=== PATIENT | female | born 1940 | race Caucasian/White ===

== ENCOUNTER 2023-03-24 16:13 | Emergency (ER) | payer MEDICARE, OTHER, SELFPAY ==
[2023-03-24 16:24] VITALS: BP 141/79; PULSE 63; RESP 18; TEMP 37.2; O2SAT 99
--- NOTE | 2023-03-24 16:36 | ED.GENADULT ---
HPI - General Adult General Time Seen by Provider: 16:36 Date Seen: 03/24/23 Chief complaint: Fever Stated complaint: Fever Time Seen by Provider: 03/24/23 16:18 Source: patient and RN notes reviewed Mode of arrival: ambulatory Limitations: no limitations History of Present Illness HPI narrative: This 82-year-old female is here with a relative whom she lives with coming in with concern of COVID. There has been a COVID exposure, that person tested positive on Wednesday. No one else around her has been ill with anything else. This patient recently moved to the area to live with her care provider, they have not established care. She has had body aches, chills overnight. Symptoms started last night. She had to put more clothes on she was so cold last night. She has just had low-grade fevers and some nasal congestion. There has been just maybe a little dry cough. No urinary symptoms, no abdominal symptoms. Denies any sore throat, no loss of taste or smell, no otalgia. She takes Tylenol p.m. to sleep but otherwise is not taken anything. Related Data Home Medications Medication Instructions Recorded Confirmed donepezil 5 mg tablet 5 mg PO DAILY 03/24/23 03/24/23 lisinopril 20 mg tablet 20 mg PO DAILY 03/24/23 03/24/23 Previous Rx's Medication Instructions Recorded nirmatrelvir 150 mg-ritonavir 100 See Rx Instructions PO .COMPLEX 03/24/23 mg tablets in a dose pack #20 ea (Paxlovid) Allergies Allergy/AdvReac Type Severity Reaction Status Date / Time Penicillins Allergy Verified 03/24/23 16:24 [facility] Social History Smoking Status: Never smoker Do you use any of these nicotine containing products: None Second hand tobacco smoke exposure: No How often do you have a drink containing alcohol: never How often do you have six or more drinks on one occasion: Never AUDIT-C Alcohol total score: 0 Non-prescribed substance use: denies use service: No Exam Const: Vital Signs, click to edit/add: Vital Signs - 24 hr 03/24/23 16:24 Temperature 99.0 F Pulse Rate [Right Pulse Oximeter] 63 Respiratory Rate 18 Blood Pressure [Ri ght Upper Arm] 141/79 H Pulse Oximetry 99 Oxygen Delivery Me thod Room Air This 82-year-old female seen in exam room 1, sitting up on the edge of the bed. She is sniffling some but otherwise is alert, interactive, no apparent distress. Sclera clear, pupils equal round reactive. She has hearing aids, they removed, some wax in canals obscuring visualization of TMs. Anterior nares look normal. Oropharynx with normal mucosa, no exudates or erythema. Speech is normal. Neck is supple, no cervical adenopathy or masses. Lungs are clear with good air entry, no wheezing or crackles. CV regular rate and rhythm no murmur. Documenting provider has reviewed patient's vital signs: yes Course Course ED Course: They would be interested in Paxlovid if she tests positive for COVID. We did go over need for renal dosing. We will be doing some basic labs with CBC, CRP and basic metabolic panel. Went over risks benefits and side effects. Nursing staff has collected the nasal swab, awaiting results. Reevaluation(s) Time of Reevaluation #1: 17:32 Reevaluation #1: Did review that she is COVID positive. We are waiting her kidney functions at this time. Vital Signs Vital signs: Initial Vital Signs Temperature 99.0 F 03/24/23 16:24 Temperature Source Temporal Artery Scan 03/24/23 16:24 Pulse Rate 63 03/24/23 16:24 Respiratory Rate 18 03/24/23 16:24 Blood Pressure 141/79 H 03/24/23 16:24 Blood Pressure Mean 99 03/24/23 16:24 Blood Pressure Position Sitting 03/24/23 16:24 Pulse Oximetry 99 03/24/23 16:24 Oxygen Delivery Method Room Air 03/24/23 16:24 Vital Signs Temperature 99.0 F 03/24/23 16:24 Pulse Rate 63 03/24/23 16:24 Respiratory Rate 18 03/24/23 16:24 Blood Pressure 141/79 H 03/24/23 16:24 Pulse Oximetry 99 03/24/23 16:24 Oxygen Delivery Method Room Air 03/24/23 16:24 Temperature 99.0 F 03/24/23 16:24 Pulse Rate 63 03/24/23 16:24 Respiratory Rate 18 03/24/23 16:24 Blood Pressure 141/79 H 03/24/23 16:24 Pulse Oximetry 99 03/24/23 16:24 Oxygen Delivery Method Room Air 03/24/23 16:24 Medical Decision Making Lab Data Lab results reviewed: Yes I reviewed the patient's lab results Labs: Lab Results 03/24/23 03/24/23 Range/Units 16:27 16:59 WBC 5.36 (4.50-11.00) K/uL RBC 3.58 L (4.00-5.20) m/uL Hgb 11.0 L (12.0-16.0) gm/dL Hct 35.4 (33.0-51.0) % MCV 99 (80-100) fL MCH 31 (26-34) pg MCHC 31 L (32-36) gm/dL RDW Coeff of Prasanth 12.2 (11.5-15.5) % Plt Count 217 (140-440) K/uL Neut % (Auto) 79.2 H (42.0-72.0) % Lymph % (Auto) 12.1 L (20-44) % [place] % (Auto) 7.6 (0.0-11.0) % Eos % (Auto) 0.0 (0.0-7.0) % Baso % (Auto) 0.4 (0.0-3.0) % Neut # (Auto) 4.20 (1.7-7.0) K/uL Lymph # (Auto) 0.60 L (0.90-2.90) K/uL [place] # (Auto) 0.40 (0.00-0.90) K/UL Eos # (Auto) 0.00 (0.00-0.50) K/uL Baso # (Auto) 0.02 (0.00-0.30) K/uL Abs Immat Gran (auto) 0.04 (0.00-0.30) K/uL Imm/Tot Granulo (auto) 0.7 % Sodium 137 (135-149) mmol/L Potassium 4.2 (3.6-5.1) mmol/L Chloride 103 (96-114) mmol/L Carbon Dioxide 23 (20-32) mmol/L Anion Gap 11 (7-15) mEq/L BUN 17 (7-30) mg/dL Creatinine 1.0 (0.5-1.5) mg/dL Estimated GFR 56 ml/min Glucose 103 (60-115) mg/dL Calcium 9.5 (8.4-10.6) mg/dL C-Reactive Protein 2.3 H (0.5-1.0) mg/dL SARS-CoV-2 (PCR) POSITIVE SARS-CoV-2 A (Negative) Influenza Type A (PCR) Negative PCR FLU A (Negative) Influenza Type B (PCR) Negative PCR FLU B (Negative) RSV (PCR) Negative PCR RSV (Negative) Discharge Plan Discharge Clinical Impression: COVID-19 Patient Disposition: Home w/ Parent or Adult Condition: Stable Instructions: COVID-19 (Coronavirus Disease 2019) (ED), COVID-19: Slow the Coronavirus Spread (ED) Additional Instructions: Start to take the Paxlovid and take as prescribed. Can use Tylenol per bottle directions if needed for any fever or discomfort. You can stay on your usual medications. Need to be rechecked if you are worsening, having difficulty breathing, have chest pain, are unable to take an oral fluids. You should quarantine per current CDC guidelines for COVID. When you are improved from this illness, do recommend follow up in clinic to get established. Hemoglobin was just mildly low at 11 which may be very well normal at age 82. This should be rechecked or compared to from previous lab results. Activity Level: Activity as Tolerated Prescriptions: New Paxlovid 150-100 mg tablets,dose pack See Rx Instructions .ROUTE .COMPLEX Qty: 20 0RF Rx Instructions: orally per package directions No Action lisinopril 20 mg tablet 20 mg PO DAILY donepezil 5 mg tablet 5 mg PO DAILY Follow Up/Referrals: Marianne Pacheco MD [Primary Care Provider] - Stand Alone Forms: [employer] Info Instructions
[2023-03-24 17:05] LABS: Basophils Absolute Auto 0.02 K/uL (0.00-0.30); Basophils Percent Auto 0.4 % (0.0-3.0); Hematocrit 35.4 % (33.0-51.0); Immature Granulocytes Abs Auto 0.04 K/uL (0.00-0.30); Immature Granulocytes Pct Auto 0.7 %; Lymphocytes Percent Auto 12.1 % (20-44); Mean Corpuscular HGB Conc 31 gm/dL (32-36); Mean Corpuscular Hemoglobin 31 pg (26-34); Mean Corpuscular Volume 99 fL (80-100); Monocytes Percent Auto 7.6 % (0.0-11.0); Neutrophils Percent Auto 79.2 % (42.0-72.0); Platelet Count* 217 K/uL (140-440); RDW Coefficient of Variation % 12.2 % (11.5-15.5); Red Blood Count 3.58 m/uL (4.00-5.20); White Blood Count* 5.36 K/uL (4.50-11.00)
[2023-03-24 17:07] LABS: Slide Review Reflex No
[2023-03-24 17:10] LABS: PCR FLU A Negative PCR FLU A (Negative); PCR FLU B Negative PCR FLU B (Negative); PCR RSV Negative PCR RSV (Negative)
[2023-03-24 17:19] LABS: SARS PCR* POSITIVE SARS-CoV-2 (Negative)
[2023-03-24 17:20] LABS: Chloride* 103 mmol/L (96-114); Sodium* 137 mmol/L (135-149)
[2023-03-24 17:21] LABS: Potassium* 4.2 mmol/L (3.6-5.1)
[2023-03-24 17:23] LABS: Estimated Glomerular Filt Rate 56 ml/min
[2023-03-24 17:24] LABS: Anion Gap 11 mEq/L (7-15); Blood Urea Nitrogen* 17 mg/dL (7-30); Calcium* 9.5 mg/dL (8.4-10.6); Carbon Dioxide* 23 mmol/L (20-32); Glucose* 103 mg/dL (60-115)
[2023-03-24 17:27] LABS: C Reactive Protein* 2.3 mg/dL (0.5-1.0)
== END 2023-03-24 17:48 | disposition home or self-care (01) ==
PROVIDERS: Emergency Provider Family Medicine; PCP Family Medicine
DX: U07.1 COVID-19 (principal)
CPT/HCPCS: 36415; 80048; 85025; 86140; 87631; 99283

== ENCOUNTER 2023-06-24 13:10 | Emergency (ER) | payer MEDICARE, OTHER, SELFPAY ==
[2023-06-24] VITALS (46 sets, daily range): BP systolic 134–185; BP diastolic 66–90; PULSE 42–62; RESP 22; TEMP 36.2; O2SAT 79–100; BMI 26.3
--- NOTE | 2023-06-24 14:37 | CRLHL7_ITS ---
For Patients: As a result of the Century Cures Act, medical imaging exams and procedure reports are released immediately into your electronic medical record. You may view this report before your referring provider. If you have questions, please contact your health care provider. Indication: Chest tightness Technique: Chest 1 view Comparison: None Findings/Impression: Cardiovascular and mediastinum: Mild cardiomegaly with aortic tortuosity. Lungs and pleural space: No pleural effusion or pneumothorax. No focal pulmonary consolidation. Bone island versus granuloma at the right upper lobe. Bones and soft tissues: Diffuse osteopenia. Right upper quadrant surgical clips. Dictated by Lisandro Rubin MD @ 06/24/2023 3:26:45 PM (Electronically Signed)
[2023-06-24 15:10] LABS: Basophils Percent Auto 0.7 % (0.0-3.0); Hematocrit 37.9 % (33.0-51.0); Hemoglobin* 11.6 gm/dL (12.0-16.0); Lymphocytes Percent Auto 34.6 % (20-44); Mean Corpuscular HGB Conc 31 gm/dL (32-36); Mean Corpuscular Hemoglobin 30 pg (26-34); Mean Corpuscular Volume 100 fL (80-100); Monocytes Percent Auto 7.4 % (0.0-11.0); Neutrophils Percent Auto 56.3 % (42.0-72.0); Platelet Count* 174 K/uL (140-440); RDW Coefficient of Variation % 12.3 % (11.5-15.5); Red Blood Count 3.81 m/uL (4.00-5.20); White Blood Count* 4.05 K/uL (4.50-11.00)
[2023-06-24 15:13] LABS: Slide Review Reflex No
[2023-06-24 15:24] LABS: Chloride* 109 mmol/L (96-114); Potassium* 4.5 mmol/L (3.6-5.1); Sodium* 143 mmol/L (135-149)
[2023-06-24 15:25] LABS: PCR FLU A Negative PCR FLU A (Negative); PCR FLU B Negative PCR FLU B (Negative); PCR RSV Negative PCR RSV (Negative)
[2023-06-24 15:27] LABS: Blood Urea Nitrogen* 21 mg/dL (7-30); Carbon Dioxide* 26 mmol/L (20-32); Est. Creatinine Clearance* 39.68; Estimated Glomerular Filt Rate 56 ml/min; Glucose* 97 mg/dL (60-115)
[2023-06-24 15:28] LABS: Calcium* 10.2 mg/dL (8.4-10.6)
--- NOTE | 2023-06-24 15:42 | ED_ITS ---
HPI - General Adult General Date Seen: 06/24/23 <Zahra Farmer MD - Last Filed: 06/28/23 10:13> Chief complaint: Chest Pain <Zahra Farmer MD - Last Filed: 06/28/23 10:13> Stated complaint: Tightness in chest <Zahra Farmer MD - Last Filed: 06/28/23 10:13> Time Seen by Provider: 06/24/23 13:58 <Zahra Farmer MD - Last Filed: 06/28/23 10:13> Source: patient and family <Zahra Farmer MD - Last Filed: 06/28/23 10:13> Mode of arrival: ambulatory <Zahra Framer MD - Last Filed: 06/28/23 10:13> Limitations: no limitations <Zahra Farmer MD - Last Filed: 06/28/23 10:13> History of Present Illness HPI narrative: Patient is an 82-year-old woman here with her daughter for evaluation near syncope associated with chest tightness. She moved here few months ago from [place], she had been living with a different daughter. She has dementia and is not a very reliable historian, but her daughter says that for maybe the past year or even more she has had occasional episodes where she feels like she is going to faint. Her daughter says she gets very anxious during these episodes, but today was the 1st time she had complained of chest tightness. This started about 12 30, they arrived here around 120 undo to high volumes were not seen for an hour to, patient denies any memory of any of this, and daughter really isn't sure when it all resolved. Right now patient says she feels fine. Her general health is good aside from dementia and high blood pressure, she takes Aricept and lisinopril. She does not smoke or drink. She has never had any fainting spells. She has not been evaluated as far as this daughter knows. <Zahra Farmer MD - Last Filed: 06/28/23 10:13> Related Data Home medications: Home Medications Medication Instructions Recorded Confirmed donepezil 5 mg tablet 5 mg PO DAILY 03/24/23 03/24/23 lisinopril 20 mg tablet 20 mg PO DAILY 03/24/23 03/24/23 <Zahra Farmer MD - Last Filed: 06/28/23 10:13> Allergies/adverse reactions: Allergies Allergy/AdvReac Type Severity Reaction Status Date / Time Penicillins Allergy Verified 06/24/23 13:32 <Zahra Farmer MD - Last Filed: 06/28/23 10:13> Review of Systems Status of ROS: Reports: unobtainable due to medical condition <Zahra Farmer MD - Last Filed: 06/28/23 10:13> [facility] Social History: Social History Smoking Status: Never smoker Do you use any of these nicotine containing products: None Second hand tobacco smoke exposure: No How often do you have a drink containing alcohol: never How often do you have six or more drinks on one occasion: Never AUDIT-C Alcohol total score: 0 Non-prescribed substance use: denies use service: No <Zahra Farmer MD - Last Filed: 06/28/23 10:13> Exam Narrative: Exam Narrative: Vital signs as noted above. In general, an alert, well-appearing elderly woman. Breathing easily. Head: Normocephalic, atraumatic. Eyes: Pupils are equal reactive. Extraocular movements are full. Conjunctivae are normal. ENT: Mucous membranes are moist. Throat is normal. Neck: Supple without lymphadenopathy. Heart: Regular rate and rhythm. No murmur or rub. Lungs: Clear bilaterally. No increased work of breathing, crackles or wheezes. Abdomen: Soft and nontender. No organomegaly. Extremities: Well perfused. No edema. No calf tenderness. Pulses intact. Neurologic: Patient is oriented to person. Speech is fluent, moves all extremities, face symmetric. Memory poor. Affect: Normal. Skin: Warm and dry. Well perfused. <Zahra Farmer MD - Last Filed: 06/28/23 10:13> Const: Vital Signs, click to edit/add: Vital Signs - 24 hr 06/24/23 13:21 06/24/23 13:22 06/24/23 13:28 Temperature 97.2 F L Pulse Rate 58 L 55 L Pulse Rate [Right Pulse Oximeter] 52 L Respiratory Rate 22 Blood Pressure 167/90 H Blood Pressure [Ri ght Upper Arm] 174/81 H Pulse Oximetry 100 100 [facility] 06/24/23 13:30 06/24/23 13:31 06/24/23 13:40 Temperature Pulse Rate 52 L 51 L Pulse Rate [Right Pulse Oximeter] Respiratory Rate Blood Pressure 174/81 H Blood Pressure [Ri ght Upper Arm] Pulse Oximetry 100 100 [facility] 06/24/23 13:45 06/24/23 13:50 06/24/23 14:00 Temperature Pulse Rate 57 L 56 L Pulse Rate [Right Pulse Oximeter] Respiratory Rate Blood Pressure Blood Pressure [Ri ght Upper Arm] Pulse Oximetry 100 100 [facility] 06/24/23 14:02 06/24/23 14:10 06/24/23 14:15 Temperature Pulse Rate 55 L 44 L Pulse Rate [Right Pulse Oximeter] Respiratory Rate Blood Pressure 185/75 H Blood Pressure [Ri ght Upper Arm] Pulse Oximetry 100 100 [facility] 06/24/23 14:20 06/24/23 14:30 06/24/23 14:31 Temperature Pulse Rate 47 L 43 L Pulse Rate [Right Pulse Oximeter] Respiratory Rate Blood Pressure 168/72 H Blood Pressure [Ri ght Upper Arm] Pulse Oximetry 100 100 [facility] 06[facility]24/23 14:32 06/24/23 14:44 06/24/23 14:45 Temperature Pulse Rate 42 L 59 L Pulse Rate [Right Pulse Oximeter] Respiratory Rate Blood Pressure Blood Pressure [Ri ght Upper Arm] Pulse Oximetry 100 98 96 [facility] 06/24/23 14:50 06/24/23 15:00 06/24/23 15:02 Temperature Pulse Rate 53 L 44 L Pulse Rate [Right Pulse Oximeter] Respiratory Rate Blood Pressure 162/78 H Blood Pressure [Ri ght Upper Arm] Pulse Oximetry 99 100 [facility] 06/24/23 15:10 06/24/23 15:15 06/24/23 15:20 Temperature Pulse Rate 44 L Pulse Rate [Right Pulse Oximeter] Respiratory Rate Blood Pressure Blood Pressure [Ri ght Upper Arm] Pulse Oximetry 100 100 [facility] 06/24/23 15:30 06/24/23 15:32 06/24/23 15:45 Temperature Pulse Rate 52 L 50 L 50 L Pulse Rate [Right Pulse Oximeter] Respiratory Rate Blood Pressure 162/71 H Blood Pressure [Ri ght Upper Arm] Pulse Oximetry 100 100 100 Oxygen Delivery [facility] 06/24/23 15:50 06/24/23 16:00 06/24/23 16:01 Temperature Pulse Rate 46 L 54 L Pulse Rate [Right Pulse Oximeter] Respiratory Rate Blood Pressure 145/80 H Blood Pressure [Ri ght Upper Arm] Pulse Oximetry 99 100 99 [facility] 06/24/23 16:10 06/24/23 16:15 06/24/23 16:20 Temperature Pulse Rate 43 L Pulse Rate [Right Pulse Oximeter] Respiratory Rate Blood Pressure Blood Pressure [Ri ght Upper Arm] Pulse Oximetry 100 100 [facility] 06/24/23 16:30 06/24/23 16:32 06/24/23 16:47 Temperature Pulse Rate Pulse Rate [Right Pulse Oximeter] Respiratory Rate Blood Pressure Blood Pressure [Ri ght Upper Arm] Pulse Oximetry 100 100 96 [facility] 06/24/23 16:50 06/24/23 17:00 06/24/23 17:02 Temperature Pulse Rate Pulse Rate [Right Pulse Oximeter] Respiratory Rate Blood Pressure Blood Pressure [Ri ght Upper Arm] Pulse Oximetry 100 99 100 Oxygen Delivery [facility] 06/24/23 19:30 06/24/23 19:32 06/24/23 19:45 Temperature Pulse Rate 52 L 45 L 42 L Pulse Rate [Right Pulse Oximeter] Respiratory Rate Blood Pressure 163/77 H Blood Pressure [Ri ght Upper Arm] Pulse Oximetry 99 98 100 Oxygen Delivery [facility] 06/24/23 19:47 06/24/23 20:00 06/24/23 20:02 Temperature Pulse Rate 51 L 60 54 L Pulse Rate [Right Pulse Oximeter] Respiratory Rate Blood Pressure 157/66 H 134/83 Blood Pressure [Ri ght Upper Arm] Pulse Oximetry 100 79 L [facility] 06/24/23 20:15 06/25/23 00:41 Temperature Pulse Rate 62 42 L Pulse Rate [Right Pulse Oximeter] Respiratory Rate 16 Blood Pressure 120/73 Blood Pressure [Ri ght Upper Arm] Pulse Oximetry 100 [facility] <Zahra Farmer MD - Last Filed: 06/28/23 10:13> Vital Signs, click to edit/add: Vital Signs - 24 hr 06/24/23 13:21 06/24/23 13:22 06/24/23 13:28 Temperature 97.2 F L Pulse Rate 58 L 55 L Pulse Rate [Right Pulse Oximeter] 52 L Respiratory Rate 22 Blood Pressure 167/90 H Blood Pressure [Ri ght Upper Arm] 174/81 H Pulse Oximetry 100 100 100 Oxygen Delivery Me od Room Air 06/24/23 13:30 06/24/23 13:31 06/24/23 13:40 Temperature Pulse Rate 52 L 51 L Pulse Rate [Right Pulse Oximeter] Respiratory Rate Blood Pressure 174/81 H Blood Pressure [Ri ght Upper Arm] Pulse Oximetry 100 100 100 Oxygen Delivery Me od 06/24/23 13:45 06/24/23 13:50 06/24/23 14:00 Temperature Pulse Rate 57 L 56 L Pulse Rate [Right Pulse Oximeter] Respiratory Rate Blood Pressure Blood Pressure [Ri ght Upper Arm] Pulse Oximetry 100 100 [facility] 06/24/23 14:02 06/24/23 14:10 06/24/23 14:15 Temperature Pulse Rate 55 L 44 L Pulse Rate [Right Pulse Oximeter] Respiratory Rate Blood Pressure 185/75 H Blood Pressure [Ri ght Upper Arm] Pulse Oximetry 100 100 100 Oxygen Delivery [facility] 06/24/23 14:20 06/24/23 14:30 06/24/23 14:31 Temperature Pulse Rate 47 L 43 L Pulse Rate [Right Pulse Oximeter] Respiratory Rate Blood Pressure 168/72 H Blood Pressure [Ri ght Upper Arm] Pulse Oximetry 100 100 100 Oxygen Delivery [facility] 06/24/23 14:32 06/24/23 14:44 06/24/23 14:45 Temperature Pulse Rate 42 L 59 L Pulse Rate [Right Pulse Oximeter] Respiratory Rate Blood Pressure Blood Pressure [Ri ght Upper Arm] Pulse Oximetry 100 98 96 Oxygen Delivery [facility] 06/24/23 14:50 06/24/23 15:00 06/24/23 15:02 Temperature Pulse Rate 53 L 44 L Pulse Rate [Right Pulse Oximeter] Respiratory Rate Blood Pressure 162/78 H Blood Pressure [Ri ght Upper Arm] Pulse Oximetry 99 100 [facility] 06/24/23 15:10 06/24/23 15:15 06/24/23 15:20 Temperature Pulse Rate 44 L Pulse Rate [Right Pulse Oximeter] Respiratory Rate Blood Pressure Blood Pressure [Ri ght Upper Arm] Pulse Oximetry 100 100 100 Oxygen Delivery [facility] 06/24/23 15:30 06/24/23 15:32 06/24/23 15:45 Temperature Pulse Rate 52 L 50 L 50 L Pulse Rate [Right Pulse Oximeter] Respiratory Rate Blood Pressure 162/71 H Blood Pressure [Ri ght Upper Arm] Pulse Oximetry 100 100 100 Oxygen Delivery [facility] 06/24/23 15:50 06/24/23 16:00 06/24/23 16:01 Temperature Pulse Rate 46 L 54 L Pulse Rate [Right Pulse Oximeter] Respiratory Rate Blood Pressure 145/80 H Blood Pressure [Ri ght Upper Arm] Pulse Oximetry 99 100 99 [facility] 06/24/23 16:10 06/24/23 16:15 06/24/23 16:20 Temperature Pulse Rate 43 L Pulse Rate [Right Pulse Oximeter] Respiratory Rate Blood Pressure Blood Pressure [Ri ght Upper Arm] Pulse Oximetry 100 100 [facility] 06/24/23 16:30 06/24/23 16:32 06/24/23 16:47 Temperature Pulse Rate Pulse Rate [Right Pulse Oximeter] Respiratory Rate Blood Pressure Blood Pressure [Ri ght Upper Arm] Pulse Oximetry 100 100 96 [facility] 06/24/23 16:50 06/24/23 17:00 06/24/23 17:02 Temperature Pulse Rate Pulse Rate [Right Pulse Oximeter] Respiratory Rate Blood Pressure Blood Pressure [Ri ght Upper Arm] Pulse Oximetry 100 99 [facility] 06/24/23 19:30 06/24/23 19:32 06/24/23 19:45 Temperature Pulse Rate 52 L 45 L 42 L Pulse Rate [Right Pulse Oximeter] Respiratory Rate Blood Pressure 163/77 H Blood Pressure [Ri ght Upper Arm] Pulse Oximetry 99 98 [facility] 06/24/23 19:47 06/24/23 20:00 06/24/23 20:02 Temperature Pulse Rate 51 L 60 54 L Pulse Rate [Right Pulse Oximeter] Respiratory Rate Blood Pressure 157/66 H 134/83 Blood Pressure [Ri ght Upper Arm] Pulse Oximetry 100 79 L 100 Oxygen Delivery [facility] 06/24/23 20:15 06/25/23 00:41 Temperature Pulse Rate 62 42 L Pulse Rate [Right Pulse Oximeter] Respiratory Rate 16 Blood Pressure 120/73 Blood Pressure [Ri ght Upper Arm] Pulse Oximetry 100 Oxygen Delivery [facility] <Ryan Cadena, DO - Last Filed: 06/25/23 00:27> Vital Signs, click to edit/add: Vital Signs - 24 hr 06/24/23 13:21 06/24/23 13:22 06/24/23 13:28 Temperature 97.2 F L Pulse Rate 58 L 55 L Pulse Rate [Right Pulse Oximeter] 52 L Respiratory Rate 22 Blood Pressure 167/90 H Blood Pressure [Ri ght Upper Arm] 174/81 H Pulse Oximetry 100 100 100 Oxygen Delivery [facility] Room Air 06/24/23 13:30 06/24/23 13:31 06/24/23 13:40 Temperature Pulse Rate 52 L 51 L Pulse Rate [Right Pulse Oximeter] Respiratory Rate Blood Pressure 174/81 H Blood Pressure [Ri ght Upper Arm] Pulse Oximetry 100 100 100 Oxygen Delivery [facility] 06/24/23 13:45 06/24/23 13:50 06/24/23 14:00 Temperature Pulse Rate 57 L 56 L Pulse Rate [Right Pulse Oximeter] Respiratory Rate Blood Pressure Blood Pressure [Ri ght Upper Arm] Pulse Oximetry 100 100 100 Oxygen Delivery [facility] 06/24/23 14:02 06/24/23 14:10 06/24/23 14:15 Temperature Pulse Rate 55 L 44 L Pulse Rate [Right Pulse Oximeter] Respiratory Rate Blood Pressure 185/75 H Blood Pressure [Ri ght Upper Arm] Pulse Oximetry 100 100 100 Oxygen Delivery [facility] 06/24/23 14:20 06/24/23 14:30 06/24/23 14:31 Temperature Pulse Rate 47 L 43 L Pulse Rate [Right Pulse Oximeter] Respiratory Rate Blood Pressure 168/72 H Blood Pressure [Ri ght Upper Arm] Pulse Oximetry 100 100 100 Oxygen Delivery [facility] 06/24/23 14:32 06/24/23 14:44 06/24/23 14:45 Temperature Pulse Rate 42 L 59 L Pulse Rate [Right Pulse Oximeter] Respiratory Rate Blood Pressure Blood Pressure [Ri ght Upper Arm] Pulse Oximetry 100 98 96 [facility] 06/[facility]/23 14:50 06/24/23 15:00 06/24/23 15:02 Temperature Pulse Rate 53 L 44 L Pulse Rate [Right Pulse Oximeter] Respiratory Rate Blood Pressure 162/78 H Blood Pressure [Ri ght Upper Arm] Pulse Oximetry 99 100 [facility] 06/24/23 15:10 06/24/23 15:15 06/24/23 15:20 Temperature Pulse Rate 44 L Pulse Rate [Right Pulse Oximeter] Respiratory Rate Blood Pressure Blood Pressure [Ri ght Upper Arm] Pulse Oximetry 100 100 [facility] 06/24/23 15:30 06/24/23 15:32 06/24/23 15:45 Temperature Pulse Rate 52 L 50 L 50 L Pulse Rate [Right Pulse Oximeter] Respiratory Rate Blood Pressure 162/71 H Blood Pressure [Ri ght Upper Arm] Pulse Oximetry 100 100 [facility] 06/24/23 15:50 06/24/23 16:00 06/24/23 16:01 Temperature Pulse Rate 46 L 54 L Pulse Rate [Right Pulse Oximeter] Respiratory Rate Blood Pressure 145/80 H Blood Pressure [Ri ght Upper Arm] Pulse Oximetry 99 100 99 [facility] 06/24/23 16:10 06/24/23 16:15 06/24/23 16:20 Temperature Pulse Rate 43 L Pulse Rate [Right Pulse Oximeter] Respiratory Rate Blood Pressure Blood Pressure [Ri ght Upper Arm] Pulse Oximetry 100 100 [facility] 06/24/23 16:30 06/24/23 16:32 06/24/23 16:47 Temperature Pulse Rate Pulse Rate [Right Pulse Oximeter] Respiratory Rate Blood Pressure Blood Pressure [Ri ght Upper Arm] Pulse Oximetry 100 100 96 [facility] 06/24/23 16:50 06/24/23 17:00 06/24/23 17:02 Temperature Pulse Rate Pulse Rate [Right Pulse Oximeter] Respiratory Rate Blood Pressure Blood Pressure [Ri ght Upper Arm] Pulse Oximetry 100 99 [facility] 06/24/23 19:30 06/24/23 19:32 06/24/23 19:45 Temperature Pulse Rate 52 L 45 L 42 L Pulse Rate [Right Pulse Oximeter] Respiratory Rate Blood Pressure 163/77 H Blood Pressure [Ri ght Upper Arm] Pulse Oximetry 99 98 100 Oxygen Delivery [facility] 06/24/23 19:47 06/24/23 20:00 06/24/23 20:02 Temperature Pulse Rate 51 L 60 54 L Pulse Rate [Right Pulse Oximeter] Respiratory Rate Blood Pressure 157/66 H 134/83 Blood Pressure [Ri ght Upper Arm] Pulse Oximetry 100 79 L 100 Oxygen Delivery [facility] 06/24/23 20:15 06/25/23 00:41 Temperature Pulse Rate 62 42 L Pulse Rate [Right Pulse Oximeter] Respiratory Rate 16 Blood Pressure 120/73 Blood Pressure [Ri ght Upper Arm] Pulse Oximetry 100 Oxygen Delivery [facility] <Deborah Edge MD - Last Filed: 06/25/23 01:22> Documenting provider has reviewed patient's vital signs: yes <Zahra Farmer MD - Last Filed: 06/28/23 10:13> Course Course ED Course: On arrival, patient had an EKG which by my review showed sinus bradycardia, ventricular rate of 54. Left bundle-branch block. No previous EKGs available for comparison. Patient's heart rate while here remained primarily in the 40s, she has an occasional pause with what looks like a ventricular escape beat, but blood pressures have been normal, and overall heart rate has not gone below 40. Labs thus far show a white count of 4, hemoglobin of 11.6, normal electrolytes, BUN and creatinine, negative CRP P. Troponin and COVID/influenza/RSV are pending at this time. I reviewed the workup so far with the patient and her daughter. I do think a repeat troponin in another hour would be reasonable given onset of her chest tightness at 12:30 p.m. and initial troponin drawn at 3:00 p.m.. She is on donepezil, and I wonder about bradycardia as a possible side effect of this medication. It is possible she is having more profound bradycardia leading to near syncopal episodes. We have not documented anything here, but discussed with her daughter that I think it would be reasonable to do either Holter or ZIO patch monitoring for her to see if she is having more specific episodes of bradycardia. In addition, I would suggest they discussed the Aricept with her primary doctor, as it may be that this medication is causing significant enough bradycardia at this point that it should be discontinued. With regard to the chest tightness, assuming both troponins are negative, I think it is reasonable to let her go home. Discussed with her daughter that further workup would depend on their goals of care in terms of how they would manage the results of a stress test, angiogram etcetera. This can be discussed further with primary care as well. <Zahra Farmer MD - Last Filed: 06/28/23 10:13> Reevaluation(s) Time of Reevaluation #1: 01:21 <Deborah Edge MD - Last Filed: 06/25/23 01:22> Reevaluation #1: Dr. dEge- nursing team informed me that she started to have episodes of bradycardia with some pauses and then what looked to be brief runs of rapid RVR in between. This was about 5 minutes prior to transfer. They report that she had been off of the cardiac monitors for probably a couple of hours and they were not aware. We moved her and a stable 1 applied pacer pads, as I observed her rhythm on the monitors, she was staying in a sinus arrhythmia but with a stable rate. She remained asymptomatic during this time. No additional interventions were given. I did recommend that she be transferred emergently because of this. Transition to EMS otherwise uncomplicated. <Deborah Edge MD - Last Filed: 06/25/23 01:22> Vital Signs Vital signs: Initial Vital Signs Pulse Rate 58 L 06/24/23 13:21 Blood Pressure 167/90 H 06/24/23 13:21 Blood Pressure Mean 115 H 06/24/23 13:21 Pulse Oximetry 100 06/24/23 13:21 Vital Signs Pulse Rate 58 L 06/24/23 13:21 Blood Pressure 167/90 H 06/24/23 13:21 Pulse Oximetry 100 06/24/23 13:21 Temperature 97.2 F L 06/24/23 13:28 Pulse Rate 45 L 06/25/23 01:10 Respiratory Rate 16 06/25/23 01:10 Blood Pressure 127/69 06/25/23 01:10 Pulse Oximetry 99 06/25/23 01:10 Oxygen Delivery Method Room Air 06/25/23 01:10 <Zahra Farmer MD - Last Filed: 06/28/23 10:13> Initial Vital Signs Pulse Rate 58 L 06/24/23 13:21 Blood Pressure 167/90 H 06/24/23 13:21 Blood Pressure Mean 115 H 06/24/23 13:21 Pulse Oximetry 100 06/24/23 13:21 Vital Signs Pulse Rate 58 L 06/24/23 13:21 Blood Pressure 167/90 H 06/24/23 13:21 Pulse Oximetry 100 06/24/23 13:21 Temperature 97.2 F L 06/24/23 13:28 Pulse Rate 45 L 06/25/23 01:10 Respiratory Rate 16 06/25/23 01:10 Blood Pressure 127/69 06/25/23 01:10 Pulse Oximetry 99 06/25/23 01:10 Oxygen Delivery Method Room Air 06/25/23 01:10 <Ryan Cadena DO - Last Filed: 06/25/23 00:27> Initial Vital Signs Pulse Rate 58 L 06/24/23 13:21 Blood Pressure 167/90 H 06/24/23 13:21 Blood Pressure Mean 115 H 06/24/23 13:21 Pulse Oximetry 100 06/24/23 13:21 Vital Signs Pulse Rate 58 L 06/24/23 13:21 Blood Pressure 167/90 H 06/24/23 13:21 Pulse Oximetry 100 06/24/23 13:21 Temperature 97.2 F L 06/24/23 13:28 Pulse Rate 45 L 06/25/23 01:10 Respiratory Rate 16 06/25/23 01:10 Blood Pressure 127/69 06/25/23 01:10 Pulse Oximetry 99 06/25/23 01:10 Oxygen Delivery Method Room Air 06/25/23 01:10 <Deborah Edge MD - Last Filed: 06/25/23 01:22> Medications Administered Medications: Discontinued Medications Generic Name Dose Route Start Last Admin Trade Name Freq PRN Reason Stop Dose Admin Heparin Sodium (Porcine) 3,500 unit 06/24/23 21:33 06/24/23 21:50 Heparin 5,000 Unit/0.5 Ml Inj 60 unit/kg (3500 unit) 06/24/23 21:34 3,500 unit IVP Administration ONCE ONE Heparin Sodium/Dextrose 25,000 unit in 500 mls @ 0 mls/hr 06/24/23 21:45 06/24/23 21:50 Heparin IV 600 unit/hr .Q0M TYLER 12 mls/hr Administration Protocol Per Protocol <Zahra Farmer MD - Last Filed: 06/28/23 10:13> Discontinued Medications Generic Name Dose Route Start Last Admin Trade Name Freq PRN Reason Stop Dose Admin Heparin Sodium (Porcine) 3,500 unit 06/24/23 21:33 06/24/23 21:50 Heparin 5,000 Unit/0.5 Ml Inj 60 unit/kg (3500 unit) 06/24/23 21:34 3,500 unit IVP Administration ONCE ONE Heparin Sodium/Dextrose 25,000 unit in 500 mls @ 0 mls/hr 06/24/23 21:45 06/24/23 21:50 Heparin IV 600 unit/hr .Q0M TYLER 12 mls/hr Administration Protocol Per Protocol <Ryan Cadena DO - Last Filed: 06/25/23 00:27> Discontinued Medications Generic Name Dose Route Start Last Admin Trade Name Freq PRN Reason Stop Dose Admin Heparin Sodium (Porcine) 3,500 unit 06/24/23 21:33 06/24/23 21:50 Heparin 5,000 Unit/0.5 Ml Inj 60 unit/kg (3500 unit) 06/24/23 21:34 3,500 unit IVP Administration ONCE ONE Heparin Sodium/Dextrose 25,000 unit in 500 mls @ 0 mls/hr 06/24/23 21:45 06/24/23 21:50 Heparin IV 600 unit/hr .Q0M TYLER 12 mls/hr Administration Protocol Per Protocol <Deborah Edge MD - Last Filed: 06/25/23 01:22> Medical Decision Making MDM Narrative Medical decision making narrative: Patient was signed out to the beginning of my shift pending repeat troponin. Initial troponin was 0.02. Repeat troponin was 0.19. I spoke to Dr. Fontaine of [facility]. At this time he recommends a repeat troponin and call back if it is rising. Otherwise admit to our hospital for echo in the morning. Repeat troponin again is 0.52 and now that this time he recommends transfer. Patient is currently asymptomatic. Heparin drip has been started Of note the patient does have some dementia up but does not have an official code status. Her daughter states the patient is cognitive enough to decide on DNR DNI at this time she has has a short memory in will forget what she chose. At this time the patient wants everything done. <Ryan Cadena, DO - Last Filed: 06/25/23 00:27> Lab Data Labs: Lab Results 06/24/23 06/24/23 06/24/23 Range/Units 14:37 15:00 17:35 WBC 4.05 L (4.50-11.00) K/uL RBC 3.81 L (4.00-5.20) m/uL Hgb 11.6 L (12.0-16.0) gm/dL Hct 37.9 (33.0-51.0) % MCV 100 (80-100) fL MCH 30 (26-34) pg MCHC 31 L (32-36) gm/dL RDW Coeff of Prasanth 12.3 (11.5-15.5) % Plt Count 174 (140-440) K/uL Neut % (Auto) 56.3 (42.0-72.0) % Lymph % (Auto) 34.6 (20-44) % Weber % (Auto) 7.4 (0.0-11.0) % Eos % (Auto) 1.0 (0.0-7.0) % Baso % (Auto) 0.7 (0.0-3.0) % Neut # (Auto) 2.30 (1.7-7.0) K/uL Lymph # (Auto) 1.40 (0.90-2.90) K/uL Weber # (Auto) 0.30 (0.00-0.90) K/UL Eos # (Auto) 0.00 (0.00-0.50) K/uL Baso # (Auto) 0.00 (0.00-0.30) K/uL Abs Immat Gran (auto) 0.00 (0.00-0.30) K/uL Imm/Tot Granulo (auto) 0.0 % INR 0.93 (0.91-1.10) APTT 32 (23-33) Seconds D-Dimer Quant (PE/DVT) 0.40 (0.00-0.50) ug/ml Sodium 143 (135-149) mmol/L Potassium 4.5 (3.6-5.1) mmol/L Chloride 109 (96-114) mmol/L Carbon Dioxide 26 (20-32) mmol/L Anion Gap 8 (7-15) mEq/L BUN 21 (7-30) mg/dL Creatinine 1.0 (0.5-1.5) mg/dL Estimated Creat Clear 39.68 Estimated GFR 56 ml/min Glucose 97 (60-115) mg/dL Calcium 10.2 (8.4-10.6) mg/dL Troponin I 0.02 0.18 H* (0.01-0.04) ng/mL C-Reactive Protein < 0.5 L (0.5-1.0) mg/dL SARS-CoV-2 (PCR) Negative SARS-CoV-2 (Negative) Influenza Type A (PCR) Negative PCR FLU A (Negative) Influenza Type B (PCR) Negative PCR FLU B (Negative) RSV (PCR) Negative PCR RSV (Negative) POC Troponin I 0.07 H (0.01-0.04) ng/ml 06/24/23 Range/Units 20:16 WBC (4.50-11.00) K/uL RBC (4.00-5.20) m/uL Hgb (12.0-16.0) gm/dL Hct (33.0-51.0) % MCV (80-100) fL MCH (26-34) pg MCHC (32-36) gm/dL RDW Coeff of Prasanth (11.5-15.5) % Plt Count (140-440) K/uL Neut % (Auto) (42.0-72.0) % Lymph % (Auto) (20-44) % Weber % (Auto) (0.0-11.0) % Eos % (Auto) (0.0-7.0) % Baso % (Auto) (0.0-3.0) % Neut # (Auto) (1.7-7.0) K/uL Lymph # (Auto) (0.90-2.90) K/uL Weber # (Auto) (0.00-0.90) K/UL Eos # (Auto) (0.00-0.50) K/uL Baso # (Auto) (0.00-0.30) K/uL Abs Immat Gran (auto) (0.00-0.30) K/uL Imm/Tot Granulo (auto) % INR (0.91-1.10) APTT (23-33) Seconds D-Dimer Quant (PE/DVT) (0.00-0.50) ug/ml Sodium (135-149) mmol/L Potassium (3.6-5.1) mmol/L Chloride (96-114) mmol/L Carbon Dioxide (20-32) mmol/L Anion Gap (7-15) mEq/L BUN (7-30) mg/dL Creatinine (0.5-1.5) mg/dL Estimated Creat Clear Estimated GFR ml/min Glucose (60-115) mg/dL Calcium (8.4-10.6) mg/dL Troponin I 0.52 H* (0.01-0.04) ng/mL C-Reactive Protein (0.5-1.0) mg/dL SARS-CoV-2 (PCR) (Negative) Influenza Type A (PCR) (Negative) Influenza Type B (PCR) (Negative) RSV (PCR) (Negative) POC Troponin I (0.01-0.04) ng/ml <Zahra Farmer MD - Last Filed: 06/28/23 10:13> Lab Results 06/24/23 06/24/23 06/24/23 Range/Units 14:37 15:00 17:35 WBC 4.05 L (4.50-11.00) K/uL RBC 3.81 L (4.00-5.20) m/uL Hgb 11.6 L (12.0-16.0) gm/dL Hct 37.9 (33.0-51.0) % MCV 100 (80-100) fL MCH 30 (26-34) pg MCHC 31 L (32-36) gm/dL RDW Coeff of Prasanth 12.3 (11.5-15.5) % Plt Count 174 (140-440) K/uL Neut % (Auto) 56.3 (42.0-72.0) % Lymph % (Auto) 34.6 (20-44) % Weber % (Auto) 7.4 (0.0-11.0) % Eos % (Auto) 1.0 (0.0-7.0) % Baso % (Auto) 0.7 (0.0-3.0) % Neut # (Auto) 2.30 (1.7-7.0) K/uL Lymph # (Auto) 1.40 (0.90-2.90) K/uL Weber # (Auto) 0.30 (0.00-0.90) K/UL Eos # (Auto) 0.00 (0.00-0.50) K/uL Baso # (Auto) 0.00 (0.00-0.30) K/uL Abs Immat Gran (auto) 0.00 (0.00-0.30) K/uL Imm/Tot Granulo (auto) 0.0 % INR 0.93 (0.91-1.10) APTT 32 (23-33) Seconds D-Dimer Quant (PE/DVT) 0.40 (0.00-0.50) ug/ml Sodium 143 (135-149) mmol/L Potassium 4.5 (3.6-5.1) mmol/L Chloride 109 (96-114) mmol/L Carbon Dioxide 26 (20-32) mmol/L Anion Gap 8 (7-15) mEq/L BUN 21 (7-30) mg/dL Creatinine 1.0 (0.5-1.5) mg/dL Estimated Creat Clear 39.68 Estimated GFR 56 ml/min Glucose 97 (60-115) mg/dL Calcium 10.2 (8.4-10.6) mg/dL Troponin I 0.02 0.18 H* (0.01-0.04) ng/mL C-Reactive Protein < 0.5 L (0.5-1.0) mg/dL SARS-CoV-2 (PCR) Negative SARS-CoV-2 (Negative) Influenza Type A (PCR) Negative PCR FLU A (Negative) Influenza Type B (PCR) Negative PCR FLU B (Negative) RSV (PCR) Negative PCR RSV (Negative) POC Troponin I 0.07 H (0.01-0.04) ng/ml 06/24/23 Range/Units 20:16 WBC (4.50-11.00) K/uL RBC (4.00-5.20) m/uL Hgb (12.0-16.0) gm/dL Hct (33.0-51.0) % MCV (80-100) fL MCH (26-34) pg MCHC (32-36) gm/dL RDW Coeff of Prasanth (11.5-15.5) % Plt Count (140-440) K/uL Neut % (Auto) (42.0-72.0) % Lymph % (Auto) (20-44) % Weber % (Auto) (0.0-11.0) % Eos % (Auto) (0.0-7.0) % Baso % (Auto) (0.0-3.0) % Neut # (Auto) (1.7-7.0) K/uL Lymph # (Auto) (0.90-2.90) K/uL Weber # (Auto) (0.00-0.90) K/UL Eos # (Auto) (0.00-0.50) K/uL Baso # (Auto) (0.00-0.30) K/uL Abs Immat Gran (auto) (0.00-0.30) K/uL Imm/Tot Granulo (auto) % INR (0.91-1.10) APTT (23-33) Seconds D-Dimer Quant (PE/DVT) (0.00-0.50) ug/ml Sodium (135-149) mmol/L Potassium (3.6-5.1) mmol/L Chloride (96-114) mmol/L Carbon Dioxide (20-32) mmol/L Anion Gap (7-15) mEq/L BUN (7-30) mg/dL Creatinine (0.5-1.5) mg/dL Estimated Creat Clear Estimated GFR ml/min Glucose (60-115) mg/dL Calcium (8.4-10.6) mg/dL Troponin I 0.52 H* (0.01-0.04) ng/mL C-Reactive Protein (0.5-1.0) mg/dL SARS-CoV-2 (PCR) (Negative) Influenza Type A (PCR) (Negative) Influenza Type B (PCR) (Negative) RSV (PCR) (Negative) POC Troponin I (0.01-0.04) ng/ml <Ryan Cadena, DO - Last Filed: 06/25/23 00:27> Lab Results 01/04/24 01/04/24 01/04/24 Range/Units 14:37 15:00 17:35 WBC 4.05 L (4.50-11.00) K/uL RBC 3.81 L (4.00-5.20) m/uL Hgb 11.6 L (12.0-16.0) gm/dL Hct 37.9 (33.0-51.0) % MCV 100 (80-100) fL MCH 30 (26-34) pg MCHC 31 L (32-36) gm/dL RDW Coeff of Prasanth 12.3 (11.5-15.5) % Plt Count 174 (140-440) K/uL Neut % (Auto) 56.3 (42.0-72.0) % Lymph % (Auto) 34.6 (20-44) % Weber % (Auto) 7.4 (0.0-11.0) % Eos % (Auto) 1.0 (0.0-7.0) % Baso % (Auto) 0.7 (0.0-3.0) % Neut # (Auto) 2.30 (1.7-7.0) K/uL Lymph # (Auto) 1.40 (0.90-2.90) K/uL Weber # (Auto) 0.30 (0.00-0.90) K/UL Eos # (Auto) 0.00 (0.00-0.50) K/uL Baso # (Auto) 0.00 (0.00-0.30) K/uL Abs Immat Gran (auto) 0.00 (0.00-0.30) K/uL Imm/Tot Granulo (auto) 0.0 % INR 0.93 (0.91-1.10) APTT 32 (23-33) Seconds D-Dimer Quant (PE/DVT) 0.40 (0.00-0.50) ug/ml Sodium 143 (135-149) mmol/L Potassium 4.5 (3.6-5.1) mmol/L Chloride 109 (96-114) mmol/L Carbon Dioxide 26 (20-32) mmol/L Anion Gap 8 (7-15) mEq/L BUN 21 (7-30) mg/dL Creatinine 1.0 (0.5-1.5) mg/dL Estimated Creat Clear 39.68 Estimated GFR 56 ml/min Glucose 97 (60-115) mg/dL Calcium 10.2 (8.4-10.6) mg/dL Troponin I 0.02 0.18 H* (0.01-0.04) ng/mL C-Reactive Protein < 0.5 L (0.5-1.0) mg/dL SARS-CoV-2 (PCR) Negative SARS-CoV-2 (Negative) Influenza Type A (PCR) Negative PCR FLU A (Negative) Influenza Type B (PCR) Negative PCR FLU B (Negative) RSV (PCR) Negative PCR RSV (Negative) POC Troponin I 0.07 H (0.01-0.04) ng/ml 06/24/23 Range/Units 20:16 WBC (4.50-11.00) K/uL RBC (4.00-5.20) m/uL Hgb (12.0-16.0) gm/dL Hct (33.0-51.0) % MCV (80-100) fL MCH (26-34) pg MCHC (32-36) gm/dL RDW Coeff of Prasanth (11.5-15.5) % Plt Count (140-440) K/uL Neut % (Auto) (42.0-72.0) % Lymph % (Auto) (20-44) % Weber % (Auto) (0.0-11.0) % Eos % (Auto) (0.0-7.0) % Baso % (Auto) (0.0-3.0) % Neut # (Auto) (1.7-7.0) K/uL Lymph # (Auto) (0.90-2.90) K/uL Weber # (Auto) (0.00-0.90) K/UL Eos # (Auto) (0.00-0.50) K/uL Baso # (Auto) (0.00-0.30) K/uL Abs Immat Gran (auto) (0.00-0.30) K/uL Imm/Tot Granulo (auto) % INR (0.91-1.10) APTT (23-33) Seconds D-Dimer Quant (PE/DVT) (0.00-0.50) ug/ml Sodium (135-149) mmol/L Potassium (3.6-5.1) mmol/L Chloride (96-114) mmol/L Carbon Dioxide (20-32) mmol/L Anion Gap (7-15) mEq/L BUN (7-30) mg/dL Creatinine (0.5-1.5) mg/dL Estimated Creat Clear Estimated GFR ml/min Glucose (60-115) mg/dL Calcium (8.4-10.6) mg/dL Troponin I 0.52 H* (0.01-0.04) ng/mL C-Reactive Protein (0.5-1.0) mg/dL SARS-CoV-2 (PCR) (Negative) Influenza Type A (PCR) (Negative) Influenza Type B (PCR) (Negative) RSV (PCR) (Negative) POC Troponin I (0.01-0.04) ng/ml <Deborah Edge MD - Last Filed: 06/25/23 01:22> Discharge Plan Discharge Clinical Impression: Acute non-ST elevation myocardial infarction (NSTEMI), Bradycardia, Near syncope <Zahra Farmer MD - Last Filed: 06/28/23 10:13> Patient Disposition: [facility] <Zahra Farmer MD - Last Filed: 06/28/23 10:13> Condition: Stable <Zahra Farmer MD - Last Filed: 06/28/23 10:13> Instructions: Chest Pain (DC), Bradycardia (ED), Near Syncope (ED) <Zahra Farmer MD - Last Filed: 06/28/23 10:13> Prescriptions: No Action lisinopril 20 mg tablet 20 mg PO DAILY donepezil 5 mg tablet 5 mg PO DAILY <Zahra Farmer MD - Last Filed: 06/28/23 10:13> Stand Alone Forms: [employer] Info Instructions <Zahra Farmer MD - Last Filed: 06/28/23 10:13>
[2023-06-24 15:43] LABS: Anion Gap 8 mEq/L (7-15); C Reactive Protein* < 0.5 mg/dL (0.5-1.0)
[2023-06-24 15:55] LABS: SARS PCR* Negative SARS-CoV-2 (Negative)
[2023-06-24 16:15] LABS: Troponin I* 0.02 ng/mL (0.01-0.04)
[2023-06-24 16:19] LABS: Troponin, Point-of-Care* 0.07 ng/ml (0.01-0.04)
[2023-06-24 19:09] LABS: Troponin I* 0.18 ng/mL (0.01-0.04)
[2023-06-24 21:09] LABS: Troponin I* 0.52 ng/mL (0.01-0.04)
[2023-06-24 21:48] LABS: INR 0.93 (0.91-1.10); Prothrombin Time 13.1 Seconds
[2023-06-24 21:49] LABS: Partial Thromboplastin Time* 32 Seconds (23-33)
[2023-06-24] MEDS: HEPARIN 25,000 UNIT/500 ML BAG 12 UNIT IV (21:50)
[2023-06-24] MEDS: HEPARIN 5,000 UNIT/0.5 ML INJ 3500 UNIT IVP (21:50)
--- NOTE | 2023-06-25 00:40 | ED.NURSE ---
Report from Taty SINGLETARY, took over pt care.
[2023-06-25 00:41] VITALS: BP 120/73; PULSE 42; RESP 16
[2023-06-25 00:55] VITALS: PULSE 25
[2023-06-25 01:00] VITALS: BP 136/59; PULSE 46; RESP 16; O2SAT 98
--- NOTE | 2023-06-25 01:05 | ED.NURSE ---
Pt denies pain, resting in bed, vehicle monitor technician shows HR increased to 135 for about 1 minute, then had a 6 second pause and resumed at rate of 32, during the pause pt became severe short of breath with intense chest pressure for about 5 seconds then states breathing issue and chest pressure resolved., MD Edeg updated, pt moved to [facility] and pads applied. EMS in route for pt transfer to [facility].
[2023-06-25 01:10] VITALS: BP 127/69; PULSE 45; RESP 16; O2SAT 99
--- NOTE | 2023-06-25 01:22 | ED.NURSE ---
report update to magaly RN, pt transported via [facility] ems. pt to go to [id number].
== END 2023-06-25 01:15 | disposition short-term general hospital (02) ==
PROVIDERS: Emergency Medicine; Emergency Provider Student in an Organized Health Care Education/Training Program; PCP Family Medicine
DX: I21.4 Non-ST elevation (NSTEMI) myocardial infarction (principal)
CPT/HCPCS: 36415; 71045; 80048; 84484; 85025; 85027; 85379; 85610; 85730; 86140; 87631; 93005; 94761; 99283; 99285; 99291; J1644

== ENCOUNTER 2023-06-25 01:07 | Outpatient (CLI) | payer MEDICARE, OTHER, SELFPAY | END 2023-06-25 01:08 | disposition home or self-care (01) | LOC: AMB 06-28 09:32 | PROVIDERS: PCP Family Medicine; Visit Provider Family Medicine | DX: I21.4 Non-ST elevation (NSTEMI) myocardial infarction (principal) | CPT/HCPCS: A0425; A0434 ==

== ENCOUNTER 2023-08-14 12:15 | Outpatient (CLI) | payer MEDICARE, OTHER, SELFPAY | END 2023-08-14 12:16 | disposition home or self-care (01) | LOC: AMB 08-25 16:43 | PROVIDERS: PCP Student in an Organized Health Care Education/Training Program; Visit Provider Student in an Organized Health Care Education/Training Program | DX: R07.89 Other chest pain (principal) | CPT/HCPCS: A0425; A0427 ==

== ENCOUNTER 2023-08-14 13:11 | Emergency (ER) | payer MEDICARE, OTHER, SELFPAY ==
[2023-08-14] VITALS (28 sets, daily range): BP systolic 126–154; BP diastolic 61–112; PULSE 59–113; RESP 18; TEMP 36.2; O2SAT 96–100; BMI 20.8
--- NOTE | 2023-08-14 13:09 | ED_ITS ---
HPI - General Adult General Date Seen: 08/14/23 Chief complaint: Chest Pain Stated complaint: Chest pain History of Present Illness HPI narrative: History is limited because of patient's dementia and poor memory 82-year-old female brought to the ER today by EMS for evaluation of an episode of chest discomfort and shortness of breath. She has a history of dementia so is not a reliable historian (on Aricept). She also has a history of hypertensio n (on lisinopril) Per report from EMS and from the patient she was shopping at [employer] today with family when she became short of breath and had some chest discomfort. 911 was called. Symptoms resolved in transport and she is now symptom free upon arrival to the ER. She moved to [place] from [place] a few months ago. was seen in the ER on 06/24 for chest tightness. EKG shows sinus bradycardia with a left bundle branch block. Heart rate in the 40s. While in the ER she began to have episodes of bradycardia. Troponins were abnormal going from 0.02 up to 0.18. She was started on heparin and transferred to [facility]. She had a pacemaker implanted at [facility], by Cardiology. Family reports that she had a coronary angiogram that showed clean coronary so she did not have any stents. They say that her consumer education specialist said she really did not have a heart attack. They say that her troponin was abnormal because of other cardiac stress. She has been doing pretty well since she was discharged from [facility]. She is now on carvedilol in addition to her previous lisinopril and donepezil. She lives at home with her daughter and son-in-law. She has dementia so typically can remember day today. They have not noticed any other new symptoms. They do occasionally take her shopping at [employer] because she likes to go. They were at [employer] today. She had been walking about 10 or 15 minutes when she began to feel shortness of breath and seemed to be slower with walking. She reported feeling foggy and possibly dizzy. She then developed chest pain and had to sit down. That prompted her family to call 911. In route to the hospital her symptoms resolved and she is now symptom free. No other recent episodes of dyspnea or chest pain. No swelling in her legs. No recent cough or fever. No reported nausea. No known abdominal pain. Related Data Home Medications Medication Instructions Recorded Confirmed donepezil 5 mg tablet 5 mg PO DAILY 03/24/23 03/24/23 lisinopril 20 mg tablet 20 mg PO DAILY 03/24/23 03/24/23 Allergies Allergy/AdvReac Type Severity Reaction Status Date / Time Penicillins Allergy Verified 06/24/23 13:32 [facility] Social History Smoking Status: Never smoker Do you use any of these nicotine containing products: None Second hand tobacco smoke exposure: No How often do you have a drink containing alcohol: never How often do you have six or more drinks on one occasion: Never AUDIT-C Alcohol total score: 0 Non-prescribed substance use: denies use service: No Exam Narrative: Exam Narrative: Constitutional: Appears well-developed and well-nourished. Alert. Hard of hearing but polite. Answers some simple questions. Not a reliable historian most history is obtained from her daughter. Non toxic. HENT: Head: Atraumatic. Nose: Nose normal. Mouth/Throat: Oral mucosa is clear and moist. no trismus. Pharynx normal. Tonsils symmetric. No tonsillar enlargement, erythema, or exudate. Eyes: Conjunctivae normal. EOM normal. Pupils equal, round, and reactive to light. No scleral icterus. Neck: Normal range of motion. Neck supple. No tracheal deviation present. No JVD Cardiovascular: Normal rate, regular rhythm. Rate in the 60s. No gallop. No friction rub. No murmur heard. Symmetric radial and PT artery pulses Pulmonary/Chest: Effort normal. No stridor. No respiratory distress. No wheezes. No rales. No rhonchi . No tenderness. Abdominal: Soft. Bowel sounds normal. No distension. No mass. No tenderness. No rebound. No guarding. Musculoskeletal: RUE: Normal range of motion. No tenderness. No deformity LUE: Normal range of motion. No tenderness. No deformity RLE: Normal range of motion. No edema. No tenderness. No deformity LLE: Normal range of motion. No edema. No tenderness. No deformity Lymph: No cervical adenopathy. Neurological: Alert and oriented to person, and no she is in the hospital but not oriented to date. She has dementia and is at her baseline. Normal strength. CN II-VII intact. No sensory deficit. GCS eye subscore is 4. GCS verbal subscore is 5. GCS motor subscore is 6. Normal coordination Skin: Skin is warm and dry. No rash noted. No pallor. Normal capillary refill. Psychiatric: Normal mood. Normal affect. Polite. Const: Vital Signs, click to edit/add: Vital Signs - 24 hr 08/14/23 12:57 08/14/23 12:58 08/14/23 13:00 Temperature Pulse Rate 61 61 60 Pulse Rate [Right Pulse Oximeter] Respiratory Rate Blood Pressure 154/69 H Blood Pressure [Ri ght Upper Arm] Pulse Oximetry 98 98 [facility] 08/14/23 13:02 08/14/23 13:03 08/14/23 13:15 Temperature 97.2 F L Pulse Rate 61 62 Pulse Rate [Right Pulse Oximeter] 66 Respiratory Rate 18 Blood Pressure 130/61 Blood Pressure [Ri ght Upper Arm] 154/69 H Pulse Oximetry 99 99 100 [facility] Air 08/14/23 13:30 08/14/23 13:48 08/14/23 14:00 Temperature Pulse Rate 60 113 H 60 Pulse Rate [Right Pulse Oximeter] Respiratory Rate Blood Pressure Blood Pressure [Ri ght Upper Arm] Pulse Oximetry 99 96 99 [facility] 08/14/23 14:02 08/14/23 14:15 08/14/23 14:30 Temperature Pulse Rate 59 L 60 65 Pulse Rate [Right Pulse Oximeter] Respiratory Rate Blood Pressure 140/66 H Blood Pressure [Ri ght Upper Arm] Pulse Oximetry 99 98 100 [facility] 08/14/23 14:45 08/14/23 15:00 08/14/23 15:02 Temperature Pulse Rate 60 61 60 Pulse Rate [Right Pulse Oximeter] Respiratory Rate Blood Pressure 127/112 H Blood Pressure [Ri ght Upper Arm] Pulse Oximetry 100 100 99 [facility] 08/14/23 15:03 08/14/23 15:15 08/14/23 15:30 Temperature Pulse Rate 61 60 60 Pulse Rate [Right Pulse Oximeter] Respiratory Rate Blood Pressure Blood Pressure [Ri ght Upper Arm] Pulse Oximetry 100 99 100 [facility] 08/14/23 15:45 08/14/23 16:00 08/14/23 16:02 Temperature Pulse Rate 61 60 60 Pulse Rate [Right Pulse Oximeter] Respiratory Rate Blood Pressure 126/64 Blood Pressure [Ri ght Upper Arm] Pulse Oximetry 99 99 98 Oxygen Delivery Me thod 08/14/23 16:24 08/14/23 16:30 08/14/23 16:45 Temperature Pulse Rate 78 62 62 Pulse Rate [Right Pulse Oximeter] Respiratory Rate Blood Pressure Blood Pressure [Ri ght Upper Arm] Pulse Oximetry 98 97 100 Oxygen Delivery Me thod 08/14/23 17:00 08/14/23 17:02 08/14/23 17:15 Temperature Pulse Rate 67 63 60 Pulse Rate [Right Pulse Oximeter] Respiratory Rate Blood Pressure 144/69 H Blood Pressure [Ri ght Upper Arm] Pulse Oximetry 99 99 99 Oxygen Delivery Me thod 08/14/23 17:30 Temperature Pulse Rate 62 Pulse Rate [Right Pulse Oximeter] Respiratory Rate Blood Pressure Blood Pressure [Ri ght Upper Arm] Pulse Oximetry 99 Oxygen Delivery Me thod Course Vital Signs Vital signs: Initial Vital Signs Pulse Rate 61 08/14/23 12:57 Blood Pressure 154/69 H 08/14/23 12:57 Blood Pressure Mean 97 08/14/23 12:57 Pulse Oximetry 98 08/14/23 12:57 Vital Signs Pulse Rate 61 08/14/23 12:57 Blood Pressure 154/69 H 08/14/23 12:57 Pulse Oximetry 98 08/14/23 12:57 Temperature 97.2 F L 08/14/23 13:03 Pulse Rate 62 08/14/23 17:30 Respiratory Rate 18 08/14/23 13:03 Blood Pressure 144/69 H 08/14/23 17:02 Pulse Oximetry 99 08/14/23 17:30 Oxygen Delivery Method Room Air 08/14/23 13:03 Medications Administered Medications: Discontinued Medications Generic Name Dose Route Start Last Admin Trade Name Freq PRN Reason Stop Dose Admin Aspirin 162 mg 08/14/23 13:31 08/14/23 13:41 Aspirin 81 Mg Tab.Chew PO 08/14/23 13:32 162 mg ONCE ONE Administration Medical Decision Making MDM Narrative Medical decision making narrative: This patient presents to the ER today for evaluation of chest pain and shortness of breath that occurred while she was walking [place] [employer] just prior to arrival today.. Differential was broad. No evidence of palpitations, syncope or other cardiac dysrhythmia. Pacemaker functioning here in the ER. We considered possible ACS, however workup with EKG and delta troponins is negative.. Given time since onset of symptoms, I do not think the patient needs to be admitted for further sets of enzymes. She did have chest pain, bradycardia and abnormal troponin last month and was transferred [facility]. She had a pacemaker placed and manage reports that she had a normal coronary angiogram at that time. She is now on carvedilol EKG shows no evidence for pericarditis. Clinical presentation not suggestive of myocarditis. Chest x-ray shows no evidence for pneumonia, pneumothorax, pulmonary edema, pleural effusion, rib fracture, cardiomegaly. Mediastinum is normal on the x-ray. The patient has no ripping or tearing pain through to the back and has symmetric pulses on exam, no other acute neuro findings so I doubt aortic dissection. Risk of radiation and contrast exposure would outweigh the benefit of CT angiogram. We considered PE for this patient. D-dimer is abnormal. CT PAs obtain fortunately negative for PE. Also negative for other intrathoracic pathology. No wheezing or bronchospasm to suggest COPD/asthma. No signs of chest wall cellulitis, shingles, injury. With reasonable clinical confidence, I think the patient is safe for outpatient follow up. Family agrees. They are eager for discharge. Discussed that they should return if she has any recurrent episodes of dyspnea or chest pain. They have an appointment to follow-up with her consumer education specialist in 6 days, on Wednesday. Discussed return precautions. Questions answered. Patient voices comfort with the plan. Lab Data Labs: Lab Results 08/14/23 08/14/23 Range/Units 13:50 16:02 WBC 4.16 L (4.50-11.00) K/uL RBC 3.86 L (4.00-5.20) m/uL Hgb 11.6 L (12.0-16.0) gm/dL Hct 38.3 (33.0-51.0) % MCV 99 (80-100) fL MCH 30 (26-34) pg MCHC 30 L (32-36) gm/dL RDW Coeff of Prasanth 12.1 (11.5-15.5) % Plt Count 182 (140-440) K/uL Neut % (Auto) 64.0 (42.0-72.0) % Lymph % (Auto) 25.5 (20-44) % Meigs % (Auto) 7.9 (0.0-11.0) % Eos % (Auto) 1.7 (0.0-7.0) % Baso % (Auto) 0.7 (0.0-3.0) % Neut # (Auto) 2.70 (1.7-7.0) K/uL Lymph # (Auto) 1.10 (0.90-2.90) K/uL Meigs # (Auto) 0.30 (0.00-0.90) K/UL Eos # (Auto) 0.10 (0.00-0.50) K/uL Baso # (Auto) 0.00 (0.00-0.30) K/uL Abs Immat Gran (auto) 0.00 (0.00-0.30) K/uL Imm/Tot Granulo (auto) 0.2 % D-Dimer Quant (PE/DVT) 1.63 H (0.00-0.50) ug/ml Sodium 140 (135-149) mmol/L Potassium 4.7 (3.6-5.1) mmol/L Chloride 107 (96-114) mmol/L Carbon Dioxide 24 (20-32) mmol/L Anion Gap 9 (7-15) mEq/L BUN 27 (7-30) mg/dL Creatinine 1.3 (0.5-1.5) mg/dL Estimated Creat Clear 24.74 Estimated GFR 41 ml/min Glucose 105 (60-115) mg/dL Calcium 10.6 (8.4-10.6) mg/dL Troponin I < 0.01 L < 0.01 L (0.01-0.04) ng/mL NT-Pro-B Natriuret Pep 334 pg/mL Imaging Data Chest x-ray: Attestation: I have reviewed the pertinent imaging results. Radiologist's impression: FINDINGS: Interval placement of a left subclavian 3 lead pacemaker with leads over the right atrial appendage, right ventricular apex and coronary sinus. Normal heart size. There is no focal pulmonary opacity, pleural effusion or pneumothorax. The visualized osseous structures are unremarkable for age. Impression: No acute cardiopulmonary abnormality. CT scan - chest: Attestation: I have reviewed the pertinent imaging results. Radiologist's impression: Impression : 1. Cardiac pacer in place. 2. Calcified granuloma left lingula. 3. No CT evidence of pulmonary thromboembolism. ECG Data Attestation: I personally reviewed and interpreted this ECG as follows: Interpretation: Atrial and ventricular paced rhythm. Rate 66 MS 126 QRS axis normal QRS axis. Paced QRS is. ST segment/T wave: No ST segment elevation or depression. QTc: 446 Compared to EKG from 06/25/2023, pacemaker is new. Discharge Plan Discharge Clinical Impression: Chest pain Patient Disposition: Home w/ Parent or Adult Condition: Stable Instructions: Chest Pain (DC) Additional Instructions: Please monitor carefully if she has any more episodes of chest pain or trouble breathing, please recheck with her doctor or return to the ER right away. Continue her regular medications for now. Even if she gets better, recheck with her doctor or consumer education specialist within the next 1-2 weeks Prescriptions: No Action lisinopril 20 mg tablet 20 mg PO DAILY donepezil 5 mg tablet 5 mg PO DAILY Follow Up/Referrals: Marianne Pacheco MD [Staff Physician] - Stand Alone Forms: [id number] Info Instructions
--- NOTE | 2023-08-14 13:31 | XR_ITS ---
Patient: [place] KAMARA Facility:?[facility] Patient ID:?[id number] Site Patient ID:?[id number]. Site :?[id number] Study:?XRay-Chest 2 view-08/14/2023 1:45:09 PM Ordering Physician:Israel Doan Final Report: Indication: Pain. Dyspnea on exertion. Technique: Chest 2 views. Comparison: Chest radiograph 06/24/2023. FINDINGS: Interval placement of a left subclavian 3 lead pacemaker with leads over the right atrial appendage, right ventricular apex and coronary sinus. Normal heart size. There is no focal pulmonary opacity, pleural effusion or pneumothorax. The visualized osseous structures are unremarkable for age. Impression: No acute cardiopulmonary abnormality. Dictated by Tammy Ma MD @ 08/14/2023 2:05:50 PM Signed by:?Tammy Ma MD @08/14/2023 2:05:50 PM (Electronic Signature)
[2023-08-14] MEDS: ASPIRIN 81 MG TAB.CHEW 162 MG PO (13:41)
[2023-08-14 14:11] LABS: Basophils Percent Auto 0.7 % (0.0-3.0); Eosinophils Percent Auto 1.7 % (0.0-7.0); Hematocrit 38.3 % (33.0-51.0); Hemoglobin* 11.6 gm/dL (12.0-16.0); Immature Granulocytes Pct Auto 0.2 %; Lymphocytes Percent Auto 25.5 % (20-44); Mean Corpuscular HGB Conc 30 gm/dL (32-36); Mean Corpuscular Hemoglobin 30 pg (26-34); Mean Corpuscular Volume 99 fL (80-100); Monocytes Percent Auto 7.9 % (0.0-11.0); Platelet Count* 182 K/uL (140-440); RDW Coefficient of Variation % 12.1 % (11.5-15.5); Red Blood Count 3.86 m/uL (4.00-5.20); White Blood Count* 4.16 K/uL (4.50-11.00)
[2023-08-14 14:16] LABS: Slide Review Reflex No
[2023-08-14 14:23] LABS: Chloride* 107 mmol/L (96-114); Potassium* 4.7 mmol/L (3.6-5.1); Sodium* 140 mmol/L (135-149)
[2023-08-14 14:26] LABS: Anion Gap 9 mEq/L (7-15); Blood Urea Nitrogen* 27 mg/dL (7-30); Carbon Dioxide* 24 mmol/L (20-32); Creatinine* 1.3 mg/dL (0.5-1.5); Est. Creatinine Clearance* 24.74; Estimated Glomerular Filt Rate 41 ml/min
[2023-08-14 14:27] LABS: Calcium* 10.6 mg/dL (8.4-10.6); Glucose* 105 mg/dL (60-115)
[2023-08-14 14:28] LABS: D Dimer Quantitative* 1.63 ug/ml (0.00-0.50)
[2023-08-14 14:40] LABS: NT Pro B Type NatriureticPept* 334 pg/mL; Troponin I* < 0.01 ng/mL (0.01-0.04)
--- NOTE | 2023-08-14 15:48 | CT_ITS ---
Patient: [place] KAMARA Facility:?[facility] Patient ID:?[id number] Site Patient ID:?[id number]. Site :?[id number] Study:?CT-Chest W/ 95CC [id number] PE PROTOCOL-08/14/2023 4:20:04 PM Ordering Physician:?Jordy Doan Final Report: INDICATION: Chest pain; dyspnea; abnormal D-dimer. COMPARISON: Two-view chest 14 August 2023. TECHNIQUE: CT chest with intravenous contrast; coronal and sagittal reformats. FINDINGS: Mild cardiomegaly without any pericardial effusion. Cardiac pacer in place. No CT evidence of acute or chronic pulmonary thromboembolism. No abnormal mediastinal or hilar lymphadenopathy. Cardiac pacer in place. No evidence of pleural effusion or chest wall pathology. No abnormal intra pulmonary nodular densities are identified. Calcified granuloma left lingula. Limited CT through the upper abdomen reveals evidence of cholecystectomy. Impression : 1. Cardiac pacer in place. 2. Calcified granuloma left lingula. 3. No CT evidence of pulmonary thromboembolism. Please note that all CT scans at this facility use dose modulation, iterative reconstruction, and/or weight-based dosing when appropriate to reduce radiation dose to as low as reasonably achievable. Dictated by Bianka Holloway MD @ 08/14/2023 4:38:16 PM Signed by:?Bianka Holloway MD @08/14/2023 4:38:16 PM (Electronic Signature)
[2023-08-14 16:51] LABS: Troponin I* < 0.01 ng/mL (0.01-0.04)
== END 2023-08-14 17:36 | disposition home or self-care (01) ==
PROVIDERS: Emergency Provider Emergency Medicine; PCP Student in an Organized Health Care Education/Training Program
DX: R07.9 Chest pain, unspecified (principal)
CPT/HCPCS: 36415; 71046; 71275; 80048; 83880; 84484; 85025; 85379; 93005; 99284; 99285; A9270; Q9967

== ENCOUNTER 2024-07-01 13:54 | Emergency (ER) | payer MEDICARE, OTHER, SELFPAY ==
--- OUTSIDE RECORDS SUMMARY | 2024-07-01 13:56 | XMS_ITS | Clinical Summary ---
Author Organization [employer] [facility] Address [place], [place] [address] Care Team Providers Care Software Development Analyst Name Role Phone Jennifer Moffett MD Primary Care Prov ider Allergies Active Allergy Reactions Criticality Noted Date Comments Penicillin G Hives 08/10/2019 Medications cyanocobalamin (Vitamin B-12) 1,000 mcg tabletIndication s:Takes dietary supplements Take 1 Tablet (1,000 mcg) by mouth once daily. 90 Tablet 3 05/24/20 23 Active cholecalciferol (Vitamin D) 1,000 unit capsuleIndicatio ns:Age related osteoporosis, unspecified pathological fracture presence Take 1 Capsule (1,000 units) by mouth once daily. 0 05/24/20 23 Active calcium carbonate (CALTRATE) 600 mg calcium (1,500 mg) tabletIndication s:Age related osteoporosis, unspecified pathological fracture presence Take 1 Tablet (600 mg) by mouth two times daily with meals. 180 Tablet 3 05/24/20 23 Active acetaminophen (TYLENOL EXTRA STRGTH) 500 mg tabletIndication s:Chronic midline low back pain without sciatica Take 1 Tablet (500 mg) by mouth every 6 hours if needed for Pain. Max acetaminophen dose: 4000mg in 24 hrs. 0 05/24/20 23 Active glucosam-chondro wh-D-zawumxtvi 500-400-2-0.33 mg cap Take 1 Capsule by mouth two times daily. Active diphenhydrAMINE- acetaminophen 25-500 mg (Tylenol PM Extra Strength) 25-500 mg tablet Take 2 Tablets by mouth at bedtime. Max acetaminophen dose: 4000mg in 24 hrs. Active Blood Pressure Monitor KitIndications:H TN (hypertension) Frequency of testinx week 1 Each 07/07/19 24 Active donepeziL (ARICEPT) 10 mg tabletIndication s:Dementia in Alzheimer's disease (HC) Take 1 Tablet (10 mg) by mouth at bedtime. 90 Tablet 11/17/19 24 Active carvediloL (COREG) 12.5 mg tabletIndication s:HFrEF (heart failure with reduced ejection fraction) (HC),Essential hypertension Take 0.5 Tablets (6.25 mg) by mouth two times daily with meals. 90 Tablet 3 11/17/19 24 Active lisinopriL (PRINIVIL; ZESTRIL) 20 mg tabletIndication s:HTN (hypertension) Take 1 Tablet (20 mg) by mouth once daily. 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 Recommend increasing her donepezil to 10mg daily, may benefit from memantine. She has impaired insight that would pose significant safety concern, requires intensive supervision. Resolved Problems Problem Noted Date Diagnosed Date Resolved Date Chest pressure 06/25/2023 09/22/2023 Encounters Date Type Department Care Team Description 04/25/2024 9:30 AM BINDER LAYER Office Visit [facility] [address] [place] [address] Delon Dang MD Follow Up (3 month follow up /Echo 08/05/23/Blaise lala ) 04/25/2024 Travel from Last 3 Months Immunizations Name Administration Dates Next Due Influenza Virus, Unspecified 05/31/2014,05/30/20 13,03/23/2012 Influenza, Inactivated AIIV4 (Age 65+ Years) Preserv Free 05/24/2023 Influenza, Whole Virus 05/25/2008 Influenza, split (incl. demi fied surface antigen) 04/11/2015 Pneumococcal Poly,23-Valent (Pneumovax) 02/29/20 10 Pneumococcal conj 13-Valent (Prevnar 13) 016 Tdap, Unspecified 03/23/2012 Zoster (Zostavax-ZVL, live) 03/06/2011 Family History Medical History Relation Name Comments Rectal cancer Father Relation Name Status Comments Father Mother Social History Tobacco Use Types Packs/Day Years Used Date Smoking Tobacco: Former Smokeless Tobacco: Never Tobacco Cessation:Counseling Given: Yes Comments:Stopped when she was 41 years old. Alcohol Use Standard Drinks/Week Comments Not Currently 0 (1 standard drink = 0.6 oz pur e alcohol) Social Connections Answer Date Recorded Do you often feel lonely or isolated from those around you? 0 05/24/2023 Financial Resource Strain Answer Date R ecorded Difficulty of Paying Living Expenses 3 05/24/2023 Difficulty of Paying Living Expenses Not on file 05/24/2023 Food Insecurity Answer Date Recorded Do you worry your food will run out before you are able to buy more? 1 05/24/2023 Transportation Needs Answer Date Record ed Does lack of transportation keep you from medica l appointments? 1 05/24/2023 Does lack of transportation keep you from work, meetings or getting things that you need? 1 05/24/2023 Housing Stability Answer Date Recorded What is your housing situation today? 1 05/24/2023 Comments No Sex and Gender Information Value Date Recorded Sex Assigned at Not on file Legal Sex Female 12:51 PM BINDER LAYER Gender Identity Not on file Sexual Orientation Not on file Obstetrics History Last Filed Vital Signs Vital Sign Reading Time Taken Comments Blood Pressure 132/74 04/25/2024 9:29 AM BINDER LAYER Pulse 63 04/25/2024 9:29 AM BINDER LAYER Temperature 36.8 C (98.2 F) 07/01/2023 7:20 AM BINDER LAYER Respiratory Rate 16 07/01/2023 7:20 AM BINDER LAYER Oxygen Saturation 98% 04/25/2024 9:29 AM BINDER LAYER Inhaled Oxygen Concentration - - Weight 55.6 kg (122 lb 8 oz) 04/25/2024 9:29 AM BINDER LAYER Height 152.4 cm (5') 08/24/2023 8:48 AM BINDER LAYER Body Mass Index 23.92 08/24/2023 8:48 AM BINDER LAYER Plan of Treatment Health Maintenance Due Date Last Done Comments Depression screening for age 12+ 1952 DEXA/DXA scan for age 65+ 09/29/2004 Medicare Wellness for age 65+ 09/29/2004 Zoster (shingles) series for age 50+ (2 of 3) 05/01/2011 03/06/2011 RSV vaccine for adults or (1 - 1-dose 75+ series) 09/29/2014 Tetanus booster 03/23/2022 03/23/2012 COVID-19 vaccine series ( season) 2024 Influenza for age 65+ 02/20/2024 05/24/2023 , 05/31/2014, 05/30/2013, Additional history exists BMI (ht and wt on same day) for age 18+ 08/23/2024 08/24/2023 Tdap Completed 03/23/2012 Pneumococcal series for age 50+ Completed 6, 02/28/2010 Insurance [facility] MEDICARE PB ONLY MEDICARE PART A HB ONLY MEDICARE PART B HB ONLY Advance Directives * DNR (Latest Code Status on File) Date Activated Date Inactivated Comments 06/25/2023 3:01 AM 07/01/2023 2:28 PM Question Answer Comments Code Status Discussion: Reviewed Preferences Care Teams Software Development Analyst Relationship Specialty Start Date End Date Jennifer Moffett MD [address] [address] PCP - General Family Practice 05/24/23
--- OUTSIDE RECORDS SUMMARY | 2024-07-01 13:56 | XMS_ITS | Continuity of Care Document ---
Author Name Nw[facility]IN User [employer] Address Unknown Organization Unknown Address Unknown Procedures FILTER APPLIED:Only known Procedures with Onset Date within the last 5 years Procedure Date Procedure Provider Ava sinclair Information Status X-RAY EXAM CHEST 2 VIEWS (09818) Completed ROUTINE VENIPUNCTURE (09371) Completed EMERGENCY DEPT VISIT HI MDM (54973) Completed EMERGENCY DEPT VISIT MOD MDM (02196) Completed METABOLIC PANEL TOTAL CA (48375) Completed ELECTROCARDIOGRAM TRACING (87542) Completed ASSAY OF NATRIURETIC PEPTIDE (15236) Completed ASSAY OF TROPONIN QUANT (01521) Completed CT ANGIOGRAPHY CHEST (17451) Completed COMPLETE CBC W/AUTO DIFF WBC (33370) Completed FIBRIN DEGRADATION QUANT (18564) Completed CRITICAL CARE FIRST HOUR (44917) Completed EMERGENCY DEPT VISIT HI MDM (69078) Completed THROMBOPLASTIN TIME PARTIAL (52961) Completed PROTHROMBIN TIME (90964) Completed ELECTROCARDIOGRAM TRACING (66821) Completed RESP VIRUS 3-5 TARGETS (06801) Completed C-REACTIVE PROTEIN (65304) Completed FIBRIN DEGRADATION QUANT (67589) Completed COMPLETE CBC W/AUTO DIFF WBC (96330) Completed ASSAY OF TROPONIN QUANT (33991) Completed METABOLIC PANEL TOTAL CA (73514) Completed X-RAY EXAM CHEST 1 VIEW (99762) Completed ROUTINE VENIPUNCTURE (34422) Completed MEASURE BLOOD OXYGEN LEVEL (79551) Completed C-REACTIVE PROTEIN (84587) Completed COMPLETE CBC W/AUTO DIFF WBC (92111) Completed METABOLIC PANEL TOTAL CA (56343) Completed ROUTINE VENIPUNCTURE (10409) Completed EMERGENCY DEPT VISIT LOW MDM (97002) Completed RESP VIRUS 3-5 TARGETS (26482) Completed Encounters FILTER APPLIED:Only known Encounters with Admission Date within the last 5 years Encounter Location Admission Discharge Billing Code [facility]
[2024-07-01 14:19] VITALS: BP 155/54; PULSE 64; RESP 18; TEMP 36.8; O2SAT 98; BMI 22.5
--- NOTE | 2024-07-01 14:49 | CRLHL7_ITS ---
For Patients: As a result of the Cures Act, medical imaging exams and procedure reports are released immediately into your electronic medical record. You may view this report before your referring provider. If you have questions, please contact your health care provider. Indication: Cough, right-sided rib pain Technique: Volumetric multidetector CT images of the chest were obtained without the administration of IV contrast. Comparison: None available. Findings: The thoracic inlet and thyroid gland are unremarkable. The thoracic aorta is nonaneurysmal. There is no mediastinal, hilar or axillary adenopathy. There is mild central bronchial thickening with minimal mucoid impaction of lower lobe bronchi. Small basilar pleural effusions with adjacent airspace opacities in the right greater than left lower lobes likely representing developing infiltrates versus atelectasis. No pneumothorax. There is no evidence of pulmonary mass or suspicious pulmonary nodule. The partially visualized upper abdominal viscera are within normal limits. The thoracic vertebral body heights are grossly maintained without evidence of significant spondylolisthesis or displaced fracture. Impression: 1. Trace basilar effusions with central bronchial thickening and mucoid impaction of the lower lobe bronchi with moderate airspace opacification of the lower lobes likely representing infiltrates. Please note that all CT scans at this facility use dose modulation, iterative reconstruction, and/or weight-based dosing when appropriate to reduce radiation dose to as low as reasonably achievable. Dictated by Alberto Bolivar MD @ 07/01/2024 4:32:11 PM (Electronically Signed)
--- OUTSIDE RECORDS SUMMARY | 2024-07-01 15:01 | XMS_ITS | Continuity of Care Document ---
Author Name Nw[facility]IN User [employer] Address Unknown Organization Unknown Address Unknown Procedures FILTER APPLIED:Only known Procedures with Onset Date within the last 5 years Procedure Date Procedure Provider Ava sinclair Information Status X-RAY EXAM CHEST 2 VIEWS (40732) Completed ROUTINE VENIPUNCTURE (26550) Completed EMERGENCY DEPT VISIT HI MDM (30948) Completed EMERGENCY DEPT VISIT MOD MDM (91024) Completed METABOLIC PANEL TOTAL CA (33871) Completed ELECTROCARDIOGRAM TRACING (55005) Completed ASSAY OF NATRIURETIC PEPTIDE (12311) Completed ASSAY OF TROPONIN QUANT (62392) Completed CT ANGIOGRAPHY CHEST (69700) Completed COMPLETE CBC W/AUTO DIFF WBC (01769) Completed FIBRIN DEGRADATION QUANT (66661) Completed CRITICAL CARE FIRST HOUR (66947) Completed EMERGENCY DEPT VISIT HI MDM (83178) Completed THROMBOPLASTIN TIME PARTIAL (66915) Completed PROTHROMBIN TIME (91979) Completed ELECTROCARDIOGRAM TRACING (37459) Completed RESP VIRUS 3-5 TARGETS (03354) Completed C-REACTIVE PROTEIN (02992) Completed FIBRIN DEGRADATION QUANT (75318) Completed COMPLETE CBC W/AUTO DIFF WBC (76586) Completed ASSAY OF TROPONIN QUANT (40945) Completed METABOLIC PANEL TOTAL CA (10687) Completed X-RAY EXAM CHEST 1 VIEW (16333) Completed ROUTINE VENIPUNCTURE (62660) Completed MEASURE BLOOD OXYGEN LEVEL (91477) Completed C-REACTIVE PROTEIN (61424) Completed COMPLETE CBC W/AUTO DIFF WBC (15984) Completed METABOLIC PANEL TOTAL CA (43413) Completed ROUTINE VENIPUNCTURE (72272) Completed EMERGENCY DEPT VISIT LOW MDM (19741) Completed RESP VIRUS 3-5 TARGETS (58017) Completed Encounters FILTER APPLIED:Only known Encounters with Admission Date within the last 5 years Encounter Location Admission Discharge Billing Code [facility]
--- OUTSIDE RECORDS SUMMARY | 2024-07-01 15:01 | XMS_ITS | Clinical Summary ---
Author Organization [employer] [facility] Address [place], [place] [address] Care Team Providers Care Seismograph Computer Name Role Phone Jennifer Moffett MD Primary [...] 24 hrs. 0 05/24/20 23 Active glucosam-chondro lk-M-kajcxxjdy 500-400-2-0.33 mg cap Take 1 Capsule by [...] Department Care Team Description 04/25/2024 9:30 AM CONNECTION WORKER Office Visit [facility] [address] [place] [address] Delon Dang MD Follow Up [...] on file Legal Sex Female 12:51 PM CONNECTION WORKER Gender Identity Not on file Sexual Orientation Not on file Obstetrics History Last Filed Vital Signs Vital Sign Reading Time Taken Comments Blood Pressure 132/74 04/25/2024 9:29 AM CONNECTION WORKER Pulse 63 04/25/2024 9:29 AM CONNECTION WORKER Temperature 36.8 C (98.2 F) 07/01/2023 7:20 AM CONNECTION WORKER Respiratory Rate 16 07/01/2023 7:20 AM CONNECTION WORKER Oxygen Saturation 98% 04/25/2024 9:29 AM CONNECTION WORKER Inhaled Oxygen Concentration - - Weight 55.6 kg (122 lb 8 oz) 04/25/2024 9:29 AM CONNECTION WORKER Height 152.4 cm (5') 08/24/2023 8:48 AM CONNECTION WORKER Body Mass Index 23.92 08/24/2023 8:48 AM CONNECTION WORKER Plan of Treatment Health Maintenance Due Date [...] for age 50+ Completed 6, 02/28/2010 Insurance [facility] MEDICARE PB ONLY MEDICARE PART A HB ONLY MEDICARE PART B HB ONLY Advance Directives * DNR (Latest Code Status on File) Date Activated Date Inactivated Comments 06/25/2023 3:01 AM 07/01/2023 2:28 PM Question Answer Comments Code Status Discussion: Reviewed Preferences Care Teams Seismograph Computer Relationship Specialty Start Date End Date Jennifer Moffett [place] [address] [address] PCP - General Family Practice 05/24/23
--- NOTE | 2024-07-01 15:06 | ED_ITS ---
HPI - General Adult General Date Seen: 07/01/24 Chief complaint: Rib Pain Stated complaint: Cough, rib pain Time Seen by Provider: 07/01/24 14:40 History of Present Illness HPI narrative: Patient is an 83-year-old woman with underlying Alzheimer's here with her yeison you and son-in-law, with whom she lives. History is provided primarily by family. She has been sick for the past couple weeks, had a cough and respiratory symptoms, seen in urgent care on June 22 and diagnosed with pneumonia. She was put on antibiotics at that time they feel overall she has improved. She was having some pain in the right chest with coughing. Cough seems to be generally improving and they thought that pain was getting better as well but today it seems worse. She has pain with any movement as well as with coughing. It does not seem to hurt to take a deep breath as far as they can tell. Patient is not able to provide a lot of history although she tells me that she hurts in that right side. She has not had any persistent fevers, no vomiting, no difficulty breathing. Related Data Home Medications ?Medication ?Instructions ?Recorded ?Confirmed donepezil 5 mg tablet 5 mg PO DAILY 03/24/23 07/01/24 lisinopril 20 mg tablet 20 mg PO DAILY 03/24/23 07/01/24 carvedilol .ROUTE 07/01/24 Previous Rx's ?Medication ?Instructions ?Recorded albuterol sulfate 90 mcg/actuation 2 puff inhalation Q4H PRN 06/22/24 aerosol inhaler shortness of breath or wheezing #1 ea azithromycin 250 mg tablet See Rx Instructions PO .COMPLEX #6 06/22/24 tabs Allergies Allergy/AdvReac Type Severity Reaction Status Date / Time amoxicillin Allergy Unknown Verified 07/01/24 14:28 Penicillins Allergy Rash Verified 07/01/24 14:28 Review of Systems Status of ROS: Reports: unobtainable due to medical condition PFSH PFS Medical History Pacemaker ?Z95.0 - Presence of cardiac pacemaker (ICD-10) COVID-19 ?U07.1 - COVID-19 (ICD-10) Social History Smoking Status: Never smoker Do you use any of these nicotine containing products: None Second hand tobacco smoke exposure: No How often do you have a drink containing alcohol: never How often do you have six or more drinks on one occasion: Never AUDIT-C Alcohol total score: 0 Non-prescribed substance use: denies use service: No Exam Narrative: Exam Narrative: Vital signs reviewed In general, alert, nontoxic elderly woman. She is breathing easily. Head: Normocephalic, atraumatic. Eyes: Sclera clear. Pupils equal and reactive. ENT: Mucous membranes moist. Neck: Supple without adenopathy. Heart: Regular rate and rhythm without murmur. Lungs: Clear. No increased work of breathing, crackles or wheezes. She has focal tenderness over the ribcage in the right lower ribs. There is no crepitus or subcu air. Abdomen: Soft, nontender to palpation. Extremities: Well perfused, pulses intact. No significant edema. No calf tenderness. Neurologic: Alert, conversant. Speech fluent, face symmetric. Moves all extremities equally. Hard of hearing. Skin: Warm, dry well perfused. Affect: Normal. Const: Vital Signs, click to edit/add: Vital Signs - 24 hr 07/01/24 14:19 Temperature 98.2 F Pulse Rate [Right Pulse Oximeter] 64 Respiratory Rate 18 Blood Pressure [Ri ght Upper Arm] 155/54 H Pulse Oximetry 98 Oxygen Delivery Me thod Room Air Documenting provider has reviewed patient's vital signs: yes Course Course ED Course: She seems to have very reproducible lateral chest wall pain on the right. No reports of trauma. This may be muscular related to coughing, could be a rib fracture. Discussed with family that we can do CT scan and see how the ribs look, make sure she does not have anything else going on like persistent pneumonia, pneumothorax, etcetera. I do not think this represents pulmonary embolism. Pain is not particularly pleuritic, is easily reproducible with external palpation, she is not short of breath, hypoxic, tachycardic and has no risk factors aside from age. Will try giving her 2.5 mg of oxycodone to see if that helps her symptomatically. They report that they been giving her Tylenol and tried ibuprofen today and nothing seems to help. CT scan by my review did not show evidence of rib fracture, pneumothorax, pleural effusion. She had a little bit of what looked like infiltrate in both bases, radiology read reviewed. They do feel this represents possible infiltrate, but I think that she had a recent pneumonia and this is probably just residual. By all reports, her symptoms have been steadily improving in terms of her cough, breathing etcetera. Pain is likely chest wall of some variety. I think it is reasonable to let her go home, I have prescribed oxycodone, they can give her 1/2-1 full tablet every 6 hours as needed. Recommended Tylenol for baseline pain. If she worsens, pain is severe uncontrolled, she has new symptoms like fever, seem short of breath, vomiting etcetera return for re-evaluation. Daughter is comfortable with that plan. Vital Signs Vital signs: Initial Vital Signs Temperature 98.2 F 07/01/24 14:19 Temperature Source Temporal Artery Scan 07/01/24 14:19 Pulse Rate 64 07/01/24 14:19 Pulse Rhythm Regular 07/01/24 14:19 Pulse Strength 2+ Slightly Diminished 07/01/24 14:19 Respiratory Rate 18 07/01/24 14:19 Blood Pressure 155/54 H 07/01/24 14:19 Blood Pressure Mean 87 07/01/24 14:19 Blood Pressure Position Sitting 07/01/24 14:19 Pulse Oximetry 98 07/01/24 14:19 Oxygen Delivery Method Room Air 07/01/24 14:19 Vital Signs Temperature 98.2 F 07/01/24 14:19 Pulse Rate 64 07/01/24 14:19 Respiratory Rate 18 07/01/24 14:19 Blood Pressure 155/54 H 07/01/24 14:19 Pulse Oximetry 98 07/01/24 14:19 Oxygen Delivery Method Room Air 07/01/24 14:19 Temperature 98.2 F 07/01/24 14:19 Pulse Rate 64 07/01/24 14:19 Respiratory Rate 18 07/01/24 14:19 Blood Pressure 155/54 H 07/01/24 14:19 Pulse Oximetry 98 07/01/24 14:19 Oxygen Delivery Method Room Air 07/01/24 14:19 Medications Administered Medications: Discontinued Medications Generic Name Dose Route Start Last Admin Trade Name Freq PRN Reason Stop Dose Admin Oxycodone HCl 2.5 mg 07/01/24 14:48 07/01/24 15:12 Oxycodone 5 Mg Tablet PO 07/01/24 14:49 2.5 mg ONCE ONE Administration Medical Decision Making Imaging Data CT scan - chest: Attestation: I have reviewed the pertinent imaging results. Radiologist's impression: Patient: Jerrica Branham MR#: [id number] : 1940 Acct:[id number] Loc: ED Service Date: 07/01/[address]: Ordering Physician: Zahra Farmer M.D. Date of Service: 07/01/24 Procedure(s): CT chest wo con Accession Number(s): [id number] cc: Zahra Farmer M.D.; Jennifer Moffett MD~ For Patients: As a result of the Cures Act, medical imaging exams and procedure reports are released immediately into your electronic medical record. You may view this report before your referring provider. If you have questions, please contact your health care provider. Indication: Cough, right-sided rib pain Technique: Volumetric multidetector CT images of the chest were obtained without the administration of IV contrast. Comparison: None available. Findings: The thoracic inlet and thyroid gland are unremarkable. The thoracic aorta is nonaneurysmal. There is no mediastinal, hilar or axillary adenopathy. There is mild central bronchial thickening with minimal mucoid impaction of lower lobe bronchi. Small basilar pleural effusions with adjacent airspace opacities in the right greater than left lower lobes likely representing developing infiltrates versus atelectasis. No pneumothorax. There is no evidence of pulmonary mass or suspicious pulmonary nodule. The partially visualized upper abdominal viscera are within normal limits. The thoracic vertebral body heights are grossly maintained without evidence of significant spondylolisthesis or displaced fracture. Impression: 1. Trace basilar effusions with central bronchial thickening and mucoid impaction of the lower lobe bronchi with moderate airspace opacification of the lower lobes likely representing infiltrates. Please note that all CT scans at this facility use dose modulation, iterative reconstruction, and/or weight-based dosing when appropriate to reduce radiation dose to as low as reasonably achievable. Dictated by Alberto Bolivar MD @ 07/01/2024 4:32:11 PM Discharge Plan Discharge Clinical Impression: Right-sided chest wall pain Patient Disposition: Home w/ Parent or Adult Condition: Improved Instructions: Chest Wall Pain (ED) Additional Instructions: I would recommend giving Tylenol 1000 mg 3 times a day for baseline pain. Oxycodone, 2 and half to 5 mg as needed for uncontrolled pain. For new symptoms such as fever, shortness of breath, severe uncontrolled pain, vomiting or other worsening, return to the emergency department. Otherwise, see primary care if not improving over the next few days to week. Prescriptions: No Action azithromycin 250 mg tablet See Rx Instructions PO .COMPLEX Qty: 6 0RF Rx Instructions: For 250 mg dose pack: take 500 mg today (day 1), then 250 mg for 4 days (days 2-5) PO albuterol sulfate 90 mcg/actuation HFA aerosol inhaler 2 puff inhalation Q4H PRN (Reason: shortness of breath or wheezing) Qty: 1 0RF carvedilol .ROUTE lisinopril 20 mg tablet 20 mg PO DAILY donepezil 5 mg tablet 5 mg PO DAILY Follow Up/Referrals: Jennifer Moffett MD [Primary Care Provider] - Stand Alone Forms: [employer] Info Instructions
[2024-07-01] MEDS: OXYCODONE 5 MG TABLET 2.5 MG PO (15:12)
== END 2024-07-01 17:40 | disposition home or self-care (01) ==
PROVIDERS: Emergency Provider Emergency Medicine; PCP Student in an Organized Health Care Education/Training Program
DX: R07.89 Other chest pain (principal)
CPT/HCPCS: 71250; 99284; A9270

== ENCOUNTER 2024-11-11 13:43 | Emergency (ER) | payer MEDICARE, OTHER, SELFPAY ==
--- OUTSIDE RECORDS SUMMARY | 2024-11-11 13:45 | XMS_ITS | Clinical Summary ---
Author Organization [facility] Address [address] [place] [address] Care Team Providers Care Director Of Casework Services Name Role Phone Jennifer Moffett MD Primary [...] 24 hrs. 0 05/24/20 23 Active glucosam-chondro ky-R-attkuvdch 500-400-2-0.33 mg cap Take 1 Capsule by [...] Date Resolved Date Chest pressure 06/25/2023 09/22/2023 Immunizations Immunization Administration Dates Next Due Influenza Virus, Unspecified 04/11/2015, 05/31/2014,05/30/2013,2011 Influenza, Inactivated AIIV4 (Age 65+ Years) Preserv Free 05/24/2023 Influenza, Whole Virus 05/25/2008 Influenza, split (incl. demi fied surface antigen) 04/11/2015 Pneumococcal Poly,23-Valent (Pneumovax) 02/28/2010 Pneumococcal conj 13-Valent (Prevnar 13) 07/10/2015 Tdap, Unspecified 03/23/2012 Zoster (Zostavax-ZVL, live) 03/06/2011 [...] is your housing situation today? 1 05/24/2023 Utilities Answer Date Recorded Do you have trouble paying f or utilities (for example, heat, electricity, water, phone)? 1 05/24/2023 Comments No Sex and Gender Information Value Date Recorded Sex Assigned at Not on file Legal Sex Female 12:51 PM TOMB MAKER HELPER Gender Identity Not on file Sexual Orientation Not on file Obstetrics History Last Filed Vital Signs Vital Sign Reading Time Taken Comments Blood Pressure 132/74 04/25/2024 9:29 AM TOMB MAKER HELPER Pulse 63 04/25/2024 9:29 AM TOMB MAKER HELPER Temperature 36.8 C (98.2 F) 07/01/2023 7:20 AM TOMB MAKER HELPER Respiratory Rate 16 07/01/2023 7:20 AM TOMB MAKER HELPER Oxygen Saturation 98% 04/25/2024 9:29 AM TOMB MAKER HELPER Inhaled Oxygen Concentration - - Weight 55.6 kg (122 lb 8 oz) 04/25/2024 9:29 AM TOMB MAKER HELPER Height 152.4 cm (5') 08/24/2023 8:48 AM TOMB MAKER HELPER Body Mass Index 23.92 08/24/2023 8:48 AM TOMB MAKER HELPER Plan of Treatment Health Maintenance Due Date Last Done Comments Depression screening for age 12+ 1952 DEXA/DXA scan for age 65+ 09/29/2004 Medicare Wellness for age 65+ 09/29/2004 Zoster (shingles) series for age 50+ (2 of 3) 05/01/2011 03/06/2011 RSV vaccine for adults or (1 - 1-dose 75+ series) 09/29/2014 Tetanus booster 03/23/2022 03/23/2012 COVID-19 vaccine series ( season) 2024 BMI (ht and wt on same day) for age 18+ 08/23/2024 08/24/2023 Influenza Vaccine (Season Ended) 2025 05/24/2023, 04/11/2015, 05/31/2014, Additional history exists Tdap Completed 03/23/2012 Pneumococcal series for age 50+ Completed 6, 02/28/[address] [facility] MEDICARE [place] ONLY MEDICARE PART A HB ONLY MEDICARE PART B HB ONLY Advance Directives * DNR (Latest Code Status on File) Date Activated Date Inactivated Comments 06/25/2023 3:01 AM 07/01/2023 2:28 PM Question Answer Comments Code Status Discussion: Reviewed Preferences Care Teams Director Of Casework Services Relationship Specialty Start Date End Date Jennifer Moffett MD [address] [place] [address] PCP - General Family Practice 05/24/23
[2024-11-11 13:57] VITALS: BP 154/87; PULSE 99; RESP 16; TEMP 36.6; O2SAT 99
--- NOTE | 2024-11-11 14:12 | ED.SKABFB ---
HPI - Skin/Abscess/Foreign Bdy General Chief complaint: Skin/Abscess/Foreign Body Stated complaint: R arm skin issue Time Seen by Provider: 11/11/24 13:50 History of Present Illness HPI narrative: This 84-year-old female comes in with her daughter because of an injury to her right forearm. She has a rather large skin tear on the dorsal aspect of her right forearm from a dog bite. The dog was her daughter's dog who appears healthy and is currently due for vaccinations this month. The patient's tetanus status is up-to-date. She has a skin tear on her right forearm that is approximately 6 cm in length. Related Data Home Medications ?Medication ?Instructions ?Recorded ?Confirmed donepezil 5 mg tablet 10 mg PO DAILY 03/24/23 11/11/24 lisinopril 20 mg tablet 20 mg PO DAILY 03/24/23 11/11/24 carvedilol 6.25 mg PO BID 07/01/24 11/11/24 Previous Rx's ?Medication ?Instructions ?Recorded albuterol sulfate 90 mcg/actuation 2 puff inhalation Q4H PRN 06/22/24 aerosol inhaler shortness of breath or wheezing #1 ea azithromycin 250 mg tablet See Rx Instructions PO .COMPLEX #6 06/22/24 tabs cephalexin 500 mg capsule 500 mg PO TID 5 days #15 caps 11/11/24 Allergies Allergy/AdvReac Type Severity Reaction Status Date / Time amoxicillin Allergy Unknown Verified 11/11/24 13:57 Penicillins Allergy Rash Verified 11/11/24 13:57 Review of Systems Status of ROS: Reports: 10 or more systems reviewed and unremarkable except as noted in History and below Narrative: Constitutional: No fevers, no weight gain or loss. Eyes: No discharge. No vision changes. HENT: No congestion, no sore throat, no ear pain. Cardiovascular: No chest pain, no palpitations. Respiratory: No shortness of breath, no wheezes, no cough. Gastrointestinal: No abdominal pain, no vomiting, no diarrhea. Genitourinary: No dysuria, no hematuria. Musculoskeletal: Normal range of motion. Skin: No rashes, no pruritis. Skin tear in the right forearm from a dog bite. Neurological: No dizziness, weakness, sensory change, speech change. Endo/Heme/Allergies: No bruising or bleeding. No polydipsia. Pysch: no suicidality, no anxiety, no insomnia. All other systems reviewed and are negative. [facility] Medical History Pacemaker ?Z95.0 - Presence of cardiac pacemaker (ICD-10) COVID-19 ?U07.1 - COVID-19 (ICD-10) Social History Smoking Status: Never smoker Do you use any of these nicotine containing products: None Second hand tobacco smoke exposure: No How often do you have a drink containing alcohol: never How often do you have six or more drinks on one occasion: Never AUDIT-C Alcohol total score: 0 Non-prescribed substance use: denies use service: No Exam Narrative: Exam Narrative: Constitutional: Well-developed, well-nourished, no acute distress. HEENT: Normocephalic, atraumatic. Neck: Normal range of motion. Nontender. Supple. Heart: Intact distal pulses. Lungs: No chest discomfort. No wheezes, rhonchi, or rales. Abdomen: Nontender. Back: Normal range of motion. Extremities: Normal range of motion. The right forearm has a skin tear that is approximately 6 cm in length. Skin: Intact. No rash. Warm. No erythema or pallor. Neurologic: No altered sensation. No weakness. Alert and oriented. Psychiatric: No suicidality. No anxiety or depression. No insomnia. Nursing notes and vitals signs are reviewed. Const: Vital Signs, click to edit/add: Vital Signs - 24 hr 11/11/24 13:57 Temperature 97.9 F Pulse Rate [Pulse Oximeter] 99 Respiratory Rate 16 Blood Pressure [Le ft Upper Arm] 154/87 H Pulse Oximetry 99 Oxygen Delivery Me thod Room Air Course Vital Signs Vital signs: Initial Vital Signs Temperature 97.9 F 11/11/24 13:57 Temperature Source Temporal Artery Scan 11/11/24 13:57 Pulse Rate 99 11/11/24 13:57 Respiratory Rate 16 11/11/24 13:57 Blood Pressure 154/87 H 11/11/24 13:57 Blood Pressure Mean 109 H 11/11/24 13:57 Blood Pressure Position Sitting 11/11/24 13:57 Pulse Oximetry 99 11/11/24 13:57 Oxygen Delivery Method Room Air 11/11/24 13:57 Vital Signs Temperature 97.9 F 11/11/24 13:57 Pulse Rate 99 11/11/24 13:57 Respiratory Rate 16 11/11/24 13:57 Blood Pressure 154/87 H 11/11/24 13:57 Pulse Oximetry 99 11/11/24 13:57 Oxygen Delivery Method Room Air 11/11/24 13:57 Temperature 97.9 F 11/11/24 13:57 Pulse Rate 99 11/11/24 13:57 Respiratory Rate 16 11/11/24 13:57 Blood Pressure 154/87 H 11/11/24 13:57 Pulse Oximetry 99 11/11/24 13:57 Oxygen Delivery Method Room Air 11/11/24 13:57 MDM - Skin/Abscess/Foreign Bdy MDM Narrative Medical decision making narrative: This patient has a skin tear in the right forearm from a dog bite. Her skin is rather thin and not likely to do well with suture repair. I did apply some lidocaine for topical anesthesia. I did not inject lidocaine into the wound. The skin edges were then approximated as best as possible but there was a significant section of skin that was missing. The nurse tells me that it fell off of her clothing in triage. The wound is left for healing by secondary intention and was sealed with Dermabond. The patient did receive a prescription for Keflex and instructions regarding wound care were given. Police are present for reporting of this injury event. Discharge Plan Discharge Clinical Impression: Dog bite of extremity Patient Disposition: Home w/ Parent or Adult Condition: Improved Additional Instructions: Keep wound clean and dry. Replace bandaging with nonstick dressing as needed. Take medication as prescribed. Follow up with MD as needed. Prescriptions: New cephalexin 500 mg capsule 500 mg PO TID 5 Days Qty: 15 0RF No Action azithromycin 250 mg tablet See Rx Instructions PO .COMPLEX Qty: 6 0RF Rx Instructions: For 250 mg dose pack: take 500 mg today (day 1), then 250 mg for 4 days (days 2-5) PO albuterol sulfate 90 mcg/actuation HFA aerosol inhaler 2 puff inhalation Q4H PRN (Reason: shortness of breath or wheezing) Qty: 1 0RF carvedilol 6.25 mg PO BID lisinopril 20 mg tablet 20 mg PO DAILY donepezil 5 mg tablet 10 mg PO DAILY Follow Up/Referrals: Jennifer Moffett MD [Primary Care Provider, Family Practice] Stand Alone Forms: Qui.lt Info Instructions
== END 2024-11-11 14:55 | disposition home or self-care (01) ==
LOC: ED 14:36
PROVIDERS: Emergency Provider Emergency Medicine Emergency Medical Services; PCP Student in an Organized Health Care Education/Training Program
DX: S51.851A Open bite of right forearm, initial encounter (principal); W54.0XXA Bitten by dog, initial encounter
CPT/HCPCS: 12002; 99282; 99284

== ENCOUNTER 2025-06-10 11:03 | Emergency (ER) | payer MEDICARE, OTHER, SELFPAY ==
--- OUTSIDE RECORDS SUMMARY | 2025-06-10 11:05 | XMS_ITS | Clinical Summary ---
Author Organization [facility] Address [facility] [place] [address] Care Team Providers Care Engineering Programmer Name Role Phone Jennifer Moffett MD Primary Care Prov ider Darrick Dan MD Unavailable [phone] Allergies Active AllergyReactionsCriticalityNoted DateCommentsAlendronateStomach Upset Vywxzh1812/11/2024 heartburn Penicillin ZSssim7008/10/2019 Medications MedicationSigDispense QuantityRefillsLast FilledStart DateEnd DateStatus cyanocobalamin (Vitamin B-12) 1,000 mcg tablet Indications:Takes dietary supplementsTake 1 Tablet (1,000 mcg) by mouth once daily. 90 Tablet ctive cholecalciferol (Vitamin D) 1,000 unit capsule Indications:Age related osteoporosis, unspecified pathological fracture presence Take 1 Capsule (1,000 units) by mouth once daily.ctive calcium carbonate (CALTRATE) 600 mg calcium (1,500 mg) tablet Indications:Age related osteoporosis, unspecified pathological fracture presence Take 1 Tablet (600 mg) by mouth two times daily with meals. 180 Tablet ctive acetaminophen (TYLENOL EXTRA STRGTH) 500 mg tablet Indications:Chronic midline low back pain without sciaticaTake 1 Tablet (500 mg) by mouth every 6 hours if needed for Pain. Max acetaminophen dose: 4000mg in24 hrs.3Active diphenhydrAMINE-acetaminophen 25-500 mg (Tylenol PM Extra Strength) 25-500 mg tablet Take 2 Tablets by mouth at bedtime. Max acetaminophen dose: 4000mg in 24 hrs. 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 (See comments) 60 Tablet 5Active Additional Information Patient not taking.Reason: See Comment (has not started due to kidney concerns), Reported on 06/01/2025 carvediloL 12.5 mg tablet Indications:HFrEF (heart failure with reduced ejection fraction) (HC),HTN (hypertension)Take 0.5 Tablets (6.25 mg) by mouth two times daily with meals. 90 Tablet 5Active carbamide peroxide (DEBROX) 6.5 % otic solution Indications:Bilateral hearing loss due to cerumen impactionPlace 5 Drops into right ear two times daily. 15 mL 5Active lisinopriL (PRINIVIL; ZESTRIL) 2.5 mg tablet Indications:Stage 3b chronic kidney disease (HC),HFrEF (heart failure with reduced ejection fraction) (HC)Take 1 Tablet (2.5 mg) by mouth once daily. 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 Recommend increasing her donepezil to 10mg daily, may benefit from memantine. She has impaired insight that would pose significant safety concern, requires intensive supervision. Resolved Problems ProblemNoted DateDiagnosed DateResolved DateChest fkjrjogi13 Encounters DateTypeDepartmentCare IuaqMwpatdhrgff29/12/2025 11:15 AM CSTOffice Visit [facility] [address] [place] [address] Darrick Dan MD Follow Up (4 month f/u)05/31/20259514Apswvv83/08/2025 9:00 AM CSTOrders Only [facility] [address] [place] [address] [place], [place] <No scans attached>05/28/20257280Qsodxz41/04/2025Travelfrom Last 3 Months Immunizations ImmunizationAdministration DatesNext DueInfluenza Virus, Aeivrhqunfe84/04/2023, 04/11/2015,05/31/2014,05/30/2013,03/23/2012Influenza, Inactivated AIIV4 (Age 65+ Years) Preserv Free05/24/2023Influenza, Whole Virus05/25/2008Influenza, split (incl. purified surface antigen)04/11/2015Pneumococcal Poly,23-Valent (Pneumovax)02/28/2010Pneumococcal conj 13-Valent (Prevnar 13)07/10/2015Rsv Unspecified Unknown Dose Aptewid4009/29/2014Tdap, Vebcvmplxyl74/03/2022,03/23/2012 Zoster (Zostavax-ZVL, live)03/06/2011 Family History Medical HistoryRelationNameCommentsRectal cancerFatherdiedRelationNameStatus CommentsFatherDeceasedMotherDeceased Social History Tobacco UseTypesPacks/DayYears UsedDateSmoking Tobacco: FormerSmokeless Tobacco: Never Tobacco Cessation:Counseling Given: Yes Comments:Stopped when she was 41 years old. Alcohol UseStandard Drinks/WeekCommentsNot Currently0 (1 standard drink = 0.6 oz pure alcohol)PHQ-2AnswerDate RecordedPHQ-2 TOTAL UFPVA761Social ConnectionsAnswerDate RecordedDo you often feel lonely or isolated from those around you?lcohol UseAnswerDate RecordedHow often do you have a drink containing alcohol?verage Number of DrinksNot on file 06/01/2025Frequency of Binge DrinkingNot on file06/01/2025Financial Resource StrainAnswerDate RecordedDifficulty of Paying Living Lyxeafag130/23/2025 Difficulty of Paying Living ExpensesNot on file12/11/2024Food InsecurityAnswer Date RecordedDo you worry your food will run out before you are able to buy more?Transportation NeedsAnswerDate RecordedDoes lack of transportation keep you from medical appointments?Does lack of transportation keep you from work, meetings or getting things that you need?1 12/11/2024Housing StabilityAnswerDate RecordedWhat is your housing situation today?UtilitiesAnswerDate RecordedDo you have trouble paying for utilities (for example, heat, electricity, water, phone)? CommentsNoSex and Gender InformationValueDate RecordedSex Assigned at BirthNot on fileLegal FvnLwbkog75/13/2020 12:51 PM CSTGender IdentityNot on fileSexual OrientationNot on file Last Filed Vital Signs Vital SignReadingTime TakenCommentsBlood Lcoqjkzm888/8206/01/2025 11:16 AM STEEP TENDER Qytvp051706/01/2025 11:13 AM TDXEilkgxliycd94.8 ??C (98.2 ??F)07/01/2023 7:20 AM CSTRespiratory Jqxh534007/01/2023 7:20 AM CSTOxygen Wguyoiighh64%02/02/2025 11:31 AM CDTInhaled Oxygen Concentration--Urhysu83.7 kg (125 lb)02/16/2025 9:16 AM CDT Bjjeil303.4 cm (5')02/16/2025 9:16 AM CDTBody Mass Index24.41002/16/2025 9:16 AM CDT Plan of Treatment DateTypeDepartmentCare Team (Latest Contact Info)Cevkljoybrp50/26/2025 11:45 AM CSTOrders Only [facility] [address] [place] [address] Lab, [place] 11/30/2025 11:15 AM CDTOrders Only [facility] [address] [place] [address] Lab, [place] 12/04/2025 12:00 PM CDTOffice Visit [facility] [address] [place] [address] [place] [address] [place] [address] Health MaintenanceDue DateLast DoneCommentsZoster (shingles) series for age 50+ (2 of 3)COVID-19 vaccine series ( season) 2025Influenza Vaccine (#1)/09/2022, 05/24/2023, 04/11/2015, Additional history existsDepression screening for age 12+ Medicare Wellness for age 65+[place] (ht and wt on same day) for age 18+, 12/11/2024, 08/24/2023Tetanus jqqdkbh2203/23/2032 03/23/2022, 03/23/2012RSV vaccine for adults or thvvcrvzoVptavnsrp44/11/2015 Pneumococcal series for age 50+Qzblalhyf92/20/2016, 02/28/2010DEXA/DXA scan for age 65+Lztsxtifi63/30/2025Hepatitis B series for 19+Aged OutNo longer eligible based on patient's age to complete this topic Procedures Procedure NamePriorityDate/TimeAssociated DiagnosisCommentsRENAL FUNCTION PANEL Qkssfbj8705/28/2025 9:14 AM STEEP TENDER CKD stage 3b, GFR 30-44 ml/min (HC) XR DXA BONE DENSITY 2 SITES HPBJLPohuwvz27/30/2025 9:13 AM CDT Age-related osteoporosis without current pathological fracture from Last 3 Months or Most Recently Relevant to Health Maintenance Results * (ABNORMAL) RENAL FUNCTION PANEL (05/28/2025 9:14 AM STEEP TENDER)ComponentValueRef RangeTest MethodAnalysis TimePerformed AtPathologist QcahtwcesXYPOLP232790 - 146 mmol/L107/30/2024 6:01 AM CSTQUEST DIAGNOSTICSPOTASSIUM4.73.5 - 5.3 mmol/L 05/29/2025 6:01 AM CSTQUEST SCFZVHAROTZODUQTNRE26981 - 110 mmol/L107/30/2024 6:01 AM CSTQUEST DIAGNOSTICSCARBON HCYAKXR3573 - 32 mmol/L107/30/2024 6:01 AM CSTQUEST RSZNICQPHIODHEVRWE5470 - 99 mg/dL05/29/2025 6:01 AM CSTQUEST DIAGNOSTICSComment: ? Fasting reference interval TUOQNIM46.18.6 - 10.4 mg/dL05/29/2025 6:01 AM CSTQUEST DIAGNOSTICSUREA NITROGEN (BUN)247 - 25 mg/dL05/29/2025 6:01 AM CSTQUEST DIAGNOSTICSCREATININE1.19(H)0.60 - 0.95 mg/dL05/29/2025 6:01 AM CSTQUEST DIAGNOSTICSBUN/CREATININE TTZZA769 - 22 (calc)05/29/2025 6:01 AM CSTQUEST IMTMPBXBFEKOGBU09(L)> OR = 60 mL/min/1.73m2 05/29/2025 6:01 AM CSTQUEST DIAGNOSTICSPHOSPHATE ( PHOSPHORUS)4.12.1 - 4.3 mg/dL05/29/2025 6:01 AM CSTQUEST DIAGNOSTICSALBUMIN4.03.6 - 5.1 g/dL05/29/2025 6:01 AM CSTQUEST DIAGNOSTICSSpecimen (Source)Anatomical Location / Laterality Collection Method / VolumeCollection TimeReceived TimeBloodBLOOD SPECIMEN / UnknownQuest Collect / Cpboxgm0205/28/2025 9:14 AM CST05/28/2025 9:14 AM STEEP TENDER Narrative Authorizing ProviderResult TypeResult StatusGurmashwin Dan MDCHEMISTRYFinal ResultPerforming OrganizationAddressCity/State/ZIP CodePhone Number [facility] [place] [id number] [place] [address], * (ABNORMAL) XR DXA BONE DENSITY 2 SITES AXIAL (12/18/2024 9:13 AM CDT) Anatomical RegionLateralityModalitySpine, HIPS, HIPL, HIPROtherSpecimen (Source)Anatomical Location / LateralityCollection Method / VolumeCollection TimeReceived Time Impressions 12/19/2024 12:49 PM CDT Osteoporosis. RECOMMENDATIONS: The National Osteoporosis Foundation recommends pharmacologic treatment for patients with T-scores of -2.5 or less, patients with prior history of fragility fractures, or patients with 10-year probability of greater than 3% at hips or greater than 20% of suffering major osteoporotic fractures. Recommend continued optimization of calcium and vitamin D intake through dietary means and/or supplementation and regular exercise. Consider pharmacologic therapy for osteoporosis. Follow-up bone density reading in 2 years if therapy initiated to assess therapeutic efficacy. Amanda Jennings PA-C [facility] 12/19/2024 Narrative 12/19/2024 12:49 PM CDT For Patients: Results are automatically released to your [facility] ([employer]) account once available, in compliance with federal regulations. This means that you may see your results before your provider has had a chance to review them. Please allow 2-3 business days for your provider to comment on the results. XR DXA Bone Mineral Density (BMD) EXAM LOCATION: [address] [address] PATIENT NAME: Jerrica Branham DATE OF : 1940 EXAM DATE: 12/18/2024 REQUESTING PROVIDER: Jennifer Moffett MD GENDER AT : female HEIGHT: 5' (12/11/2024) WEIGHT: ??126 lb 4 oz (12/11/2024) MENOPAUSAL STATUS: Postmenopausal RACE/ETHNICITY: White RISK FACTORS: Smoking (prior), Weight < 127 lbs., and White Race CURRENT MEDICATION FOR BONE LOSS: NONE INDICATION: AGE RELATED OSTEOPOROSIS COMPARISON DATE(S): None DXA scans are compared to prior studies for a patient only when the two (or more) studies were performed on the same scanner. It is not possible to compare data generated on one scanner to data from another because there are not standards in DXA equipment. This applies even if the two scanners are made by the same band top maker. PROCEDURE: Dual-energy x-ray absorptiometry performed with routine technique. Reporting is completed in the form of a T-score. The T-score represents the standard deviation from peak bone mass based on young healthy adult. A Z-score is used for diagnosis in premenopausal women, and for men under the age of 50. FINDINGS: RESULT LUMBAR SPINE L1 - L3 ??(EXCLUDE L4) ??BMD: 0.844 g/cm2 T-Score: - 2.8 Z-Score: - 0.6 Change from prior: ??None RESULTS FEMUR Left femoral neck BMD: 0.765 g/cm2 T-Score: - 2.0 Z-Score: + 0.6 Change from prior: ??None Left hip BMD: 0.686 g/cm2 T-Score: - 2.6 Z-Score: - 0.1 Change from prior: ??None WHO criteria: Normal: T-score at or above -1 SD Osteopenia: T-score between -1.1 and -2.4 SD Osteoporosis: T-score at or below -2.5 SD FRAX RISK CALCULATION (USED FOR OSTEOPENIA ONLY): 10-year probability of major osteoporotic fracture: 16.0%. 10-year probability of hip fracture: 5.0%. Authorizing ProviderResult TypeResult StatusKatherderik Moffett MDDEXA Final Result from Last 3 Months or Most Recently Relevant to Health Maintenance Insurance Advance Directives * DNR (Latest Code Status on File) Date ActivatedDate InactivatedComments06/25/2023 3:01 AM07/01/2023 2:28 PMQuestion AnswerCommentsCode Status Discussion:* Reviewed Preferences Care Teams Team MemberRelationshipSpecialtyStart DateEnd Date Jennifer Moffett MD [address] [place] [address] PCP - GeneralFamily Practice03/02/25 [place] [address] [place] [address] NephrologyNephrology02/16/25
[2025-06-10 11:34] VITALS: BP 127/69; PULSE 76; TEMP 36.3; O2SAT 97; BMI 21.6
--- NOTE | 2025-06-10 12:53 | CRLHL7_ITS ---
For Patients: As a result of the Cures Act, medical imaging exams and procedure reports are released immediately into your electronic medical record. You may view this report before your referring provider. If you have questions, please contact your health care provider. INDICATION: Pain. Injury. FINDINGS: The bones appear demineralized. 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 The glenohumeral joint appears normal. There is no fracture or dislocation. There is an electronic device upon the left side of the chest. Dictated by Felix Mendez MD @ 06/10/2025 2:42:48 PM (Electronically Signed)
[2025-06-10] MEDS: ACETAMINOPHEN 500 MG TABLET 1000 MG PO (13:35)
--- NOTE | 2025-06-10 13:41 | ED.GENADULT ---
HPI - General Adult General Date Seen: 06/10/25 Chief complaint: Shoulder Injury/Pain Stated complaint: L shoulder pain Time Seen by Provider: 06/10/25 12:40 History of Present Illness HPI narrative: Patient is an 84-year-old woman with underlying dementia and very hard of hearing, brought in by her daughter and son-in-law for evaluation of left shoulder pain. They initially presented to urgent care but were told she needed to be seen in the ER because of her history of pacemaker and they were concerned about possible acute coronary syndrome. Her daughter provides the history, patient has significant dementia and is not really able to provide any history. She has of apparently at times had some shoulder pain over the past couple of weeks, this is movement based, and has been relatively mild until today. She seemed to have fairly severe pain when she was trying to use her shoulder earlier today and was not wanting to move her arm, so they thought they should get her checked out. She has not had any falls that they are aware of, it sounds like she lives with them and their daughter, so between all of them she is not left alone because of her dementia. Related Data Home Medications ?Medication ?Instructions ?Recorded ?Confirmed donepezil 5 mg tablet 10 mg PO DAILY 03/24/23 06/10/25 lisinopril 20 mg tablet 20 mg PO DAILY 03/24/23 06/10/25 carvedilol 6.25 mg PO BID 07/01/24 06/10/25 Previous Rx's ?Medication ?Instructions ?Recorded albuterol sulfate 90 mcg/actuation 2 puff inhalation Q4H PRN 06/22/24 aerosol inhaler shortness of breath or wheezing #1 ea azithromycin 250 mg tablet See Rx Instructions PO .COMPLEX #6 06/22/24 tabs cephalexin 500 mg capsule 500 mg PO TID 5 days #15 caps 11/11/24 Allergies Allergy/AdvReac Type Severity Reaction Status Date / Time amoxicillin Allergy Unknown Verified 06/10/25 11:42 Penicillins Allergy Rash Verified 06/10/25 11:42 Review of Systems Status of ROS: Reports: unobtainable due to medical condition [facility] Medical History Pacemaker ?Z95.0 - Presence of cardiac pacemaker (ICD-10) COVID-19 ?U07.1 - COVID-19 (ICD-10) Social History Smoking Status: Never smoker Do you use any of these nicotine containing products: None Second hand tobacco smoke exposure: No How often do you have a drink containing alcohol: never How often do you have six or more drinks on one occasion: Never AUDIT-C Alcohol total score: 0 Non-prescribed substance use: denies use service: No Exam Narrative: Exam Narrative: Vital signs reviewed In general, an alert, nontoxic elderly woman. Very hard of hearing. Head: Normocephalic, atraumatic. Eyes: Sclera clear. Pupils equal and reactive. ENT: Mucous membranes moist. Neck: Supple without adenopathy. Heart: Regular rate and rhythm without murmur. Lungs: Clear. No increased work of breathing, crackles or wheezes. Abdomen: Soft, nontender to palpation. Extremities: The left shoulder is normal in appearance, there is no bruising, swelling, warmth or erythema. She allowed passive range of motion with abduction to about 90?, extension to 90?, her daughter says she was not able to do that earlier today. Active range of motion is somewhat more limited, whether this is due to pain or cooperation is unclear. She does have tenderness primarily over the AC joint, which seems consistently tender to palpation. Neurologic: Alert, confused. Skin: Warm, dry well perfused. Affect: Normal. Const: Vital Signs, click to edit/add: Vital Signs - 24 hr 06/10/25 11:34 06/10/25 14:00 Temperature 97.4 F L Pulse Rate 81 Pulse Rate [Pulse Oximeter] 76 Respiratory Rate 16 Blood Pressure 132/77 Blood Pressure [Ri ght Upper Arm] 127/69 Pulse Oximetry 97 97 Oxygen Delivery Me thod Room Air Room Air Course Course ED Course: I did x-rays of the left shoulder which by my review are negative. Radiology read is negative. She had some Tylenol. I do not think this is cardiac and I do not think she needs a cardiac workup. Her daughter agrees with that. She seems to have fairly reproducible pain when she uses her shoulder, but because of her dementia it is difficult to tell exactly what is hurting. She winces in pain however when she uses her shoulder. I suggested for now that we just treat this conservatively with ice and scheduled Tylenol. If she is not improving then I think following up with primary care would be a reasonable next step. Consideration of further imaging or orthopedic consultation for injection would be reasonable if not improving. Return any time for worsening or new symptoms. Vital Signs Vital signs: Initial Vital Signs Temperature 97.4 F L 06/10/25 11:34 Temperature Source Temporal Artery Scan 06/10/25 11:34 Pulse Rate 76 06/10/25 11:34 Pulse Rhythm Regular 06/10/25 11:34 Blood Pressure 127/69 06/10/25 11:34 Blood Pressure Mean 88 06/10/25 11:34 Blood Pressure Position Sitting 06/10/25 11:34 Pulse Oximetry 97 06/10/25 11:34 Oxygen Delivery Method Room Air 06/10/25 11:34 Vital Signs Temperature 97.4 F L 06/10/25 11:34 Pulse Rate 76 06/10/25 11:34 Blood Pressure 127/69 06/10/25 11:34 Pulse Oximetry 97 06/10/25 11:34 Oxygen Delivery Method Room Air 06/10/25 11:34 Temperature 97.4 F L 06/10/25 11:34 Pulse Rate 81 06/10/25 14:00 Respiratory Rate 16 06/10/25 14:00 Blood Pressure 132/77 06/10/25 14:00 Pulse Oximetry 97 06/10/25 14:00 Oxygen Delivery Method Room Air 06/10/25 14:00 Medications Administered Medications: Discontinued Medications Generic Name Dose Route Start Last Admin Trade Name Freq PRN Reason Stop Dose Admin Acetaminophen 1,000 mg 06/10/25 12:52 06/10/25 13:35 Acetaminophen 500 Mg Tablet PO 06/10/25 12:53 1,000 mg ONCE ONE Administration Medical Decision Making Imaging Data Shoulder x-ray: Attestation: I have reviewed the pertinent imaging results. Radiologist's impression: Patient: [place] KAMARA Facility: [facility] Site . Site : 1940 Study: XRay-Shoulder Left 3V-06/10/2025 1:12:29 PM Ordering Physician: Darian Sweeney Final Report: INDICATION: Pain. Injury. FINDINGS: The bones appear demineralized. 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 The glenohumeral joint appears normal. There is no fracture or dislocation. There is an electronic device upon the left side of the chest. Dictated by Felix Mendez MD @ 06/10/2025 2:42:48 PM Discharge Plan Discharge Clinical Impression: Left shoulder pain Patient Disposition: Home w/ Parent or Adult Condition: Stable Instructions: Shoulder Pain (ED) Additional Instructions: X-rays are unremarkable today. I think in the short term ice and scheduled Tylenol for few days is the best approach to this. If she is continuing to complain of a lot of pain or having difficulty using the shoulder, would recommend primary care follow-up Prescriptions: No Action azithromycin 250 mg tablet See Rx Instructions PO .COMPLEX Qty: 6 0RF Rx Instructions: For 250 mg dose pack: take 500 mg today (day 1), then 250 mg for 4 days (days 2-5) PO albuterol sulfate 90 mcg/actuation HFA aerosol inhaler 2 puff inhalation Q4H PRN (Reason: shortness of breath or wheezing) Qty: 1 0RF carvedilol 6.25 mg PO BID lisinopril 20 mg tablet 20 mg PO DAILY donepezil 5 mg tablet 10 mg PO DAILY cephalexin 500 mg capsule 500 mg PO TID 5 Days Qty: 15 0RF Follow Up/Referrals: Jennifer Moffett MD [Primary Care Provider, Family Practice] Stand Alone Forms: MyHealth Info Instructions
[2025-06-10 14:00] VITALS: BP 132/77; PULSE 81; RESP 16; O2SAT 97
== END 2025-06-10 14:45 | disposition home or self-care (01) ==
PROVIDERS: Emergency Provider Emergency Medicine; PCP Student in an Organized Health Care Education/Training Program
DX: M25.511 Pain in right shoulder (principal); H91.93 Unspecified hearing loss, bilateral; F03.90 Unspecified dementia, unspecified severity, without behavioral disturbance, psychotic disturbance, mood disturbance, and anxiety; Z95.0 Presence of cardiac pacemaker
CPT/HCPCS: 73030; 99283; 99284; A9270